=== PATIENT | male | born 1945 | race Caucasian/White ===

== ENCOUNTER 2017-03-24 05:12 | Inpatient (IN) | payer MEDICARE ==
[2017-03-24 06:20] LABS: #Eosinphils 0.1 thou/uL (0.0-0.7); #Lymphocytes 1.8 thou/uL (1.20-3.40); %Basophils 0.3 % (0.0-1.0); %Eosinophils 0.8 % (0.0-10.0); %Lymphocytes 16.7 % (21.0-51.0); %Monocytes 8.8 % (0.0-10.0); %Neutrophils 73.3 % (42.0-75.0); Mean Corpuscular HGB CONC 30.8 g/dL (32.0-36.0); Mean Corpuscular Hemoglobin 26.8 pg (27.0-31.0); Mean Platelet Volume 7.9 fL (7.4-10.4); Platelet Count 130 thou/uL (130-400); RBC Distribution Width 16.8 % (11.5-14.5); Red Blood Cell (RBC) Count 5.21 mill/uL (4.70-6.10); White Blood Cell (WBC) Count 10.9 thou/uL (4.8-10.8)
[2017-03-24 06:44] LABS: ALT (SGPT) 35 U/L (8-55); AST (SGOT) 37 U/L (5-34); Albumin 4.2 g/dL (3.4-4.8); Alkaline Phosphatase 62 U/L (40-150); Anion Gap 11 mmol/L (10-20); BUN (Urea Nitrogen) 23 mg/dL (8.4-25.7); Bilirubin, Total 1.5 mg/dL (0.2-1.2); CK (CPK) 299 U/L (30-200); Calc. Creatinine Clearance 0 mL/min (70-130); Calcium 10.3 mg/dL (7.8-10.44); Carbon Dioxide 29 mmol/L (23-31); Chloride 101 mmol/L (98-107); Estimated GFR-MDRD 81; Globulin 3.4 g/dL (2.4-3.5); Glucose 203 mg/dL (83-110); Potassium 4.4 mmol/L (3.5-5.1); Protein, Total 7.6 g/dL (5.8-8.1); Sodium 137 mmol/L (136-145)
[2017-03-24 06:52] LABS: CKMB 7.8 ng/mL (0-6.6); Troponin I 3.929 ng/mL (< 0.028)
[2017-03-24] MEDS ORDERED: Lorazepam 2 MG/ML VIAL ONE (07:19)
[2017-03-24] MEDS ORDERED: Nitroglycerin 2% Ointment 1 INCH/1 GM Packet ONE (08:23)
[2017-03-24] MEDS ORDERED: Enoxaparin Sodium 100 MG/ML SYRINGE ONE (08:23)
--- NOTE | 2017-03-24 08:30 | RAD ---
TWO VIEWS CHEST: Comparison: None. History: Shortness of breath since 11:00 p.m., dyspnea. FINDINGS: Two views of the chest shows a normal sized cardiomediastinal silhouette. The patient is status post CABG. Increased interstitial markings are present. There is no evidence of consolidation, mass, pleur al effusion. Degenerative changes are seen in the spine. IMPRESSION: No evidence of acute cardiopulmonary disease. POS: C
--- NOTE | 2017-03-24 08:40 | CT ---
CT ANGIO OF CHEST PERFORMED WITH INTRAVENOUS CONTRAST ENHANCEMENT AND 3D RECONSTRUCTIONS: History: Shortness of breath. FINDINGS: Lungs show some mild ground glass opacity with moderate bilateral pleural effusions, right larger jesus n left. This suggests an element of edema. Thoracic aorta shows aneurysmal dilatation of the ascending aorta which measures approximately 5.6 cm . The descending thoracic aorta is within normal limits. There is good pulmonary artery opacification. Artifact degrades detailed evaluation of the subsegment al branches in the lower lobes for evaluation for pulmonary embolus. I see no definitive signs of pul monary embolus. Visualized liver parenchyma shows no focal abnormalities. IMPRESSION: 1. Findings that suggest an element of edema, bilateral effusions, and some mild ground glass opacity to both lung griffith. 2. No CT evidence for pulmonary embolus. 3. Aneurysmal dilatation of the ascending aorta which measures approximately 5.6 cm in AP dimension. POS: [facility]
[2017-03-24] MEDS ORDERED: Furosemide 40 MG/4 ML VIAL ONE (09:41)
[2017-03-24] MEDS ORDERED: Clopidogrel Bisulfate 75 MG TAB ONE (10:14)
[2017-03-24] MEDS ORDERED: Dextrose 50% Abboject 50 ML SYRINGE SLOW IVP PRN (10:36)
[2017-03-24] MEDS ORDERED: Zolpidem Tartrate 5 MG TAB PO PRN (10:36)
[2017-03-24] MEDS ORDERED: hydrALAZINE 20 MG/ML VIAL SLOW IVP PRN (10:36)
[2017-03-24] MEDS ORDERED: Chloraseptic Spray 180 ml Bottle PO PRN (10:36)
[2017-03-24] MEDS ORDERED: Acetaminophen 325 MG TAB PO PRN (10:36)
[2017-03-24] MEDS ORDERED: HYDROcodone/Acetaminophen 5/325 mg Tablet PO PRN (10:36)
[2017-03-24] MEDS ORDERED: Nitroglycerin 0.4 MG TAB (25 Tab Bottle) SL PRN (10:36)
[2017-03-24] MEDS ORDERED: Sodium Chloride 0.9% 1,000 ML IV SCH (10:36)
[2017-03-24] MEDS ORDERED: Famotidine/PF 20 mg/2ml Vial SLOW IVP PRN (10:36)
[2017-03-24] MEDS ORDERED: Dextrose 5% in Water 1,000 ML IV PRN (10:36)
[2017-03-24] MEDS ORDERED: HumaLOG 300 UNITS/3 ML VIAL SC PRN (10:36)
[2017-03-24] MEDS ORDERED: Ondansetron HCl/PF 4 MG/2 ML Vial IVP PRN (10:36)
[2017-03-24] MEDS ORDERED: Communication Order-Pharmacy FS SCH (11:00)
[2017-03-24 11:12] LABS: Troponin I 5.477 ng/mL (< 0.028)
--- NOTE | 2017-03-24 11:37 | CON ---
DATE OF CONSULTATION: 03/24/2017 CARDIOLOGY CONSULTATION REASON FOR CONSULTATION: Non-STEMI. HISTORY OF PRESENT ILLNESS: Mr. Diaz is a very pleasant 71-year-old white gentleman who comes to [facility] for increased shortness of breath. He states for last 2 days he has been unable to lay fl at on his back. He states he has not been able to sleep at all because he has been coughing every ti me he lays flat. He has tried to prop himself up with about 4 or 5 pillows with little improvement, so he decided to come in to the hospital for further evaluation. Here, he was found to have an eleva christiano BNP and was given some IV Lasix, feels much better. Because of D-dimer was elevated, a CT of the chest with contrast was done. He also had troponins drawn that were elevated, so Cardiology has bee n consulted for further care. He has a left bundle branch block on his EKG, so this is at his baseli ne. He has significant history of coronary artery disease with previous bypass x5 in 2001. He had a BARRERA to the LAD. He had a nondominant right coronary artery that was not bypassed because it was sm all. He has a vein grafts to 4 limbs, two vein grafts are coming off of the aorta and there is Y-gra ft to OM1, 2, 3 and 4. One of them is a free radial from the vein graft. This Y graft was opened an d the distal portion of the second Y graft was closed on recent heart catheterization in 2008. He te lls me that he did not have any chest pain, tightness or pressure in the last few days such as shortn ess of breath. When I told him he had a heart attack or the blood work was suggestive of a heart att ack, he told me this might have happened 2 days ago as he feels that this is when everything started to get worse. He had some heartburn at that time. Currently, he is pain free, no heartburn. His br eathing is much better after his IV Lasix and some diuresis. PAST MEDICAL HISTORY: 1. PVD. 2. Type 2 diabetes. 3. Hypertension. 4. Hyperlipidemia. 5. Coronary artery disease. PAST SURGICAL HISTORY: 1. Coronary bypass grafting x5 in 2001. 2. Cholecystectomy. 3. Right salivary gland tumor removal. 4. Coronary stent in 2013. 5. Recent peripheral angiography with plans to do aortobifemoral bypass in the future if his symptom s progress. FAMILY HISTORY: Father at 85 of heart disease. Mother at 81 of Alzheimer dementia. SOCIAL HISTORY: He is a former smoker, quit smoking after his heart attack in 2001. 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 ALLERGIES: No known drug allergies. OUTPATIENT MEDICATION: This is from a note from September of this year and he will bring an updated list, they include: 1. Carvedilol 25 mg b.i.d. 2. Crestor 10 mg at bedtime. 3. Plavix 75 mg a day. 4. Lisinopril 10 mg a day. 5. Aspirin 325 a day. 6. Gabapentin 600 mg 3 times a day. 7. Pramipexole. 8. Isosorbide mononitrate 30 mg every day. 9. Glimepiride. 10. Nitrolingual spray. REVIEW OF SYSTEMS: A 12-point review of systems was done and is all negative unless stated in the hi story of present illness. PHYSICAL EXAMINATION: VITAL SIGNS: Temperature 97.2, pulse 70, respiratory rate 16, satting 98% on room air, blood pressur e 120/62. GENERAL: Awake, alert, oriented x3, in no distress. HEENT: Normocephalic, atraumatic. NECK: Supple. LUNGS: Have mild crackles at the bilateral bases. CARDIOVASCULAR: S1, S2, no S3 or S4. There is a grade 3/6 systolic ejection murmur at the right upp er sternal border which is mid to late peaking and it radiated to the rest of the precordium. ABDOMEN: Soft, positive bowel sounds. EXTREMITIES: No edema. SKIN: Warm and dry. LABORATORY WORK: Reviewed. White count of 10.9, hemoglobin of 14, hematocrit 45, and white count 13 0. Coags with D-dimer of 1.86. Chemistry profile unremarkable except for glucose of 203, total bili cullen 1.5, AST of 37. CK of 299. CK-MB of 7.8, troponin I of 3.9. BNP of 1057, albumin of 4.2. Chest x-ray was unremarkable. CT of the chest shows findings suggestive of pulmonary edema with bilateral effusions. There is no e vidence of pulmonary embolus, but there is an aneurysmal dilatation of the ascending aorta that measu res 5.6 cm in AP dimension. EKG was reviewed, the left bundle branch block which is old. ASSESSMENT AND PLAN: 1. Non-ST elevation myocardial infarction. 2. Acute on chronic systolic heart failure. 3. Ischemic cardiomyopathy. 4. Coronary artery disease, severe. 5. Ascending aortic aneurysm. 6. Aortic stenosis, moderate per report. 7. Type 2 diabetes. 8. Peripheral vascular disease. PLAN: 1. We will get an echocardiogram to assess his aortic valve. 2. To continue IV Lasix to diurese. 3. I spoke with him about further risk stratification with a heart catheterization and he agrees to proceed. I spoke with him at length about the risks and benefits of the procedure and he has had the m before and he agrees to proceed. I told him that because of his enlarged aorta, his risk of dissec tion and perforation is higher, but this is needed before any surgical intervention is planned in the aorta. We will plan on doing an angiography. I will try to avoid stenting if at all possible as mo st likely solution would be doing open heart surgery to replace his aortic valve and his aortic aneur ysm and doing bypass at the same time. If this were to be the case, he will have to be transferred [facility] [place] for this as we are not able to do this procedure in our facility. 4. Continue full anticoagulation. We will reevaluate tomorrow morning and if he is better from his breathing standpoint, we will plan on taking him to the catheterization lab at that time. Currently, he is unable to lie flat for longer than 5 or 10 minutes. Thank you for letting us to participate in the care of your patient. We will follow.
[2017-03-24] MEDS ORDERED: ISOVUE-370 76%-LOCM 1 ML ONE (11:38)
[2017-03-24 11:51] LABS: Cardiac Risk 3.3 (Less than 4.5)
[2017-03-24] MEDS ORDERED: Metoprolol Tartrate 25 MG TAB ONE (13:28)
[2017-03-24 14:24] LABS: Troponin I 5.633 ng/mL (< 0.028)
--- NOTE | 2017-03-24 15:12 | HP ---
CHIEF COMPLAINT: Shortness of breath. HISTORY OF PRESENT ILLNESS: This is a 71-year-old pleasant gentleman with a history of coronary leelee ry disease status post CABG, comes into the hospital with shortness of breath. The patient says that he was out on the [place] in the night hunting. He had hunted a deer and once he had process ed the animal, he became extremely short of breath. It did not resolve on the first and hence he cam e to the hospital for further evaluation and treatment. Initial evaluation showed BNP to be 1057 and troponin of 3.9. Dr. Almonte was consulted. He recommended admission of the patient for further romeo luation of the coronary arteries and elevated troponin and management of CHF. The patient denies any fever, chills, nausea, vomiting, diarrhea or dysuria. No chest pain at current moment. PAST MEDICAL HISTORY: Significant for coronary artery disease status post CABG, history of CHF, diab etes, hypertension, and hyperlipidemia. PAST SURGICAL HISTORY: Significant for cardiac stenting x1, CABG and cholecystectomy. PSYCHIATRIC HISTORY: No previous psychiatric history. SOCIAL HISTORY: Does not drink, smoke or do recreational drugs. FAMILY HISTORY: Negative for diabetes and hypertension. ALLERGIES: No known drug allergies. MEDICATIONS: Please see MAR. REVIEW OF SYSTEMS: Significant for shortness of breath, otherwise no fever, no chills, no headache, no appetite, no hearing loss, no latencies. No cough, no chest pain, no diarrhea, no dysuria, no alondra yuria, no memory or mood changes, and no neck pain. PHYSICAL EXAMINATION: VITAL SIGNS: Blood pressure 112/63, pulse is 73, respirations 23, temperature afebrile. GENERAL: Patient is lying in bed, no apparent distress. HEENT: Atraumatic and normocephalic. Pupils equally round, react to light. Extraocular movements i ntact. Mucous membranes moist. NECK: No JVD. CHEST: Bibasilar rales heard. HEART: S1, S2 normal. No murmurs or gallops. ABDOMEN: Soft, obese. EXTREMITIES: No cyanosis, clubbing, edema. Distal pulses present. NEUROLOGICAL: Alert, awake, oriented. No cranial deficits. No sensorimotor deficits. IMAGING DATA AND LABORATORY DATA: CTA shows edema, no embolism. Chest x-ray normal. Also, CTA show ed dilatation of the ascending aorta 5.6 cm. BNP is 1057. Chest x-ray negative. CK-MB is 7.8, CK 2 99, potassium is 4.4, creatinine is 0.9, bilirubin 1.5. WBC 7.9, hemoglobin is 14. ASSESSMENT AND PLAN: 1. Mmx-CP-thsbuvt elevation myocardial infarction. We will trend troponins. Echocardiogram, ACS pr otocol. Dr. Suzy pressley will follow his recommendations. 2. Congestive heart failure exacerbation. We will do echocardiogram to classify the congestive hear t failure. We will treat with IV Lasix for now. For ACS protocol includes, we will treat with subcu Lovenox therapeutic dose. 3. Diabetes mellitus, put him on insulin sliding scale. 4. Hyperlipidemia. We will check fasting lipid profile. 5. Hypertension appears to be stable. 6. Obesity. The patient has been counseled. Sequential compression devices for deep venous thrombo sis prophylaxis. Patient also is on Lovenox. The patient appears to be a FULL CODE as of now. We w ill work with Cardiology and further caring for the patient.
[2017-03-24 18:34] LABS: Critical Call Chem Troponin I RESULT DECREASING; Troponin I 5.606 ng/mL (< 0.028)
[2017-03-24] MEDS ORDERED: Enoxaparin Sodium 100 MG/ML SYRINGE SC SCH (21:00)
[2017-03-24] MEDS ORDERED: Atorvastatin Calcium 40 MG TAB PO SCH (21:00)
[2017-03-24] MEDS: Docusate 100 MG CAP PO SCH (21:01)
[2017-03-24] MEDS: Metoprolol Tartrate 25 MG TAB PO SCH (21:03)
[2017-03-24] MEDS: Benzonatate 100 MG CAP PO PRN (21:03)
[2017-03-24] MEDS: Furosemide 40 MG/4 ML VIAL SLOW IVP SCH (21:04)
[2017-03-24 23:27] LABS: Critical Call Chem Troponin I RESULT DECREASING; Troponin I 4.839 ng/mL (< 0.028)
[2017-03-24 23:43] LABS: Bilirubin Negative (Negative); Blood, Urine Negative (Negative); Clarity CLEAR (Clear); Glucose, Urine (Dipstick) 250 mg/dL (Negative); Leukocyte Small (Negative); Nitrite Negative (Negative); Protein, Urine (Dipstick) Negative (Neg-Trace); Specific Gravity, Urine 1.032 (1.002-1.036); pH, Urine 5.5 (5.0-9.0)
[2017-03-24 23:45] LABS: Bacteria/HPF None Seen HPF (None Seen); Hyaline Casts/LPF 0-3 HYALINE CAST LPF (0-3 Hyaline); Squamous Epithelial None Seen HPF (0-3)
[2017-03-25] MEDS: Benzonatate 100 MG CAP PO PRN ×2 (03:12→07:59)
[2017-03-25] MEDS: Metoprolol Tartrate 25 MG TAB PO SCH (04:57)
[2017-03-25] MEDS: Furosemide 40 MG/4 ML VIAL SLOW IVP SCH ×2 (04:57→13:59)
[2017-03-25 05:36] LABS: ALT (SGPT) 25 U/L (8-55); AST (SGOT) 23 U/L (5-34); Albumin 3.8 g/dL (3.4-4.8); Alkaline Phosphatase 52 U/L (40-150); Anion Gap 13 mmol/L (10-20); BUN (Urea Nitrogen) 19 mg/dL (8.4-25.7); Bilirubin, Total 1.6 mg/dL (0.2-1.2); Calc. Creatinine Clearance 109 mL/min (70-130); Calcium 9.5 mg/dL (7.8-10.44); Carbon Dioxide 28 mmol/L (23-31); Chloride 99 mmol/L (98-107); Estimated GFR-MDRD 85; Globulin 3.2 g/dL (2.4-3.5); Glucose 164 mg/dL (83-110); Potassium 3.9 mmol/L (3.5-5.1); Sodium 136 mmol/L (136-145)
[2017-03-25] MEDS: Docusate 100 MG CAP PO SCH (07:35)
[2017-03-25 08:19] VITALS: BMI 28.6
[2017-03-25] MEDS ORDERED: Aspirin 325 MG TAB PO SCH (09:00)
--- NOTE | 2017-03-25 12:24 | PDOC.CTH ---
Cardiology Progress Note - Subjective He has diuresed well and his breathing is much better. - Objective Vital Signs Temp Pulse Resp BP BP Pulse Ox 03/25/17 07:57 98.0 F 67 18 138/66 95 03/25/17 04:00 98.1 F 76 20 122/79 95 Admit Weight 224 lb Weight 223 lb 03/24/17 03/25/17 03/26/17 06:59 06:59 06:59 Intake Total 240 Balance 240 - Physical Examination General/Neuro: alert & oriented x3, NAD Neck: no JVD present Lungs: CTA, unlabored respirations Heart: RRR Abdomen: NT/ND Extremities: + edema B (trace.) - Telemetry Telemetry Rhythm: NSR - Labs Result Diagrams: 03/24/17 05:33 03/25/17 04:47 Troponin/CKMB CK-MB (CK-2) 7.8 ng/mL (0-6.6) H* 03/24/17 05:33 Troponin I 4.839 ng/mL (< 0.028) H* 03/24/17 22:45 - Assessment/Plan 1. Acute on chronic systolic heart failure 2. Severe dilated CM. EF at 20-25% 3. Severe aortic stenosis. 4. Ascending aortic artery aneurysm, measured at 5.[address] 5. NSTEMI PLAN: - I spoke with his primary Ferry Operator Raymond Portillo and he tells me his coronary disease is severe and likely to be amenable to any intervention. - Most likely cause of his CHF exacerbation is worsening of his aortic valve, per Dr. Andrade his valve was moderate to severe with normal EF on echo on 2015. - With reduced EF and also needing an aortic root he would require open heart surgery for a root repair, valve replacement and possibly bypass surgery, he would be high risk. I do not think he is a candidate for a TAVR with an enlarged root. medical therapy may be his best option and is what will do for now. - He would like to be transferred to the [facility] as there is were his primary Ferry Operator is. if his transfer does not go through he will be treated medically with 48hrs of anticoagulation and will be discharged home probably tomorrow on a lifevest. Order will be placed today.
--- NOTE | 2017-03-25 12:45 | DIS ---
DATE OF ADMISSION: 03/24/2017 DATE OF DISCHARGE: 03/25/2017 DISPOSITION: Different inpatient hospital. DIAGNOSES ON DISCHARGE: Non-ST elevation myocardial infarction, acute on chronic systolic congestive heart failure, ischemic cardiomyopathy, coronary artery disease, ascending aortic aneurysm, diabetes , peripheral vascular disease, hyperlipidemia, diabetes, and hypertension. CONSULTANTS: Dr. Almonte. DISCHARGE MEDICATIONS: The same as admit medications. BRIEF HOSPITAL COURSE: A 71-year-old pleasant gentleman came into the hospital with shortness of bianca ath after an episode of hunting, please refer to the admitting physician's H&P for further details. The patient was admitted, given Lovenox. Dr. Almonte spoke to the patient in detail about his conditi on, they decided to have further care with their portable pinch riveter, who is at the [facility]. Arrangements for t he transfer are being made right now, patient is medically stable to be transferred. PHYSICAL EXAMINATION: VITAL SIGNS: At the time of discharge, his vital signs were stable. Blood pressure was 100/60, puls e was 70, respirations 20, and temperature afebrile. GENERAL: The patient was lying in bed, no apparent distress. HEENT: Atraumatic and normocephalic. Pupils equally round, reactive to light. Extraocular movement s intact. Mucous membranes moist. NECK: Supple. No JVD. CHEST: Breath sounds heard. There are no rales or rhonchi. HEART: S1 and S2, no murmurs or gallops. ABDOMEN: Soft. EXTREMITIES: No cyanosis, clubbing or edema. Distal pulses present. NEUROLOGIC: Alert, awake, oriented. No cranial deficits. No sensorimotor deficits. The patient right now is medically stable to be transferred. In our hospital, he had a CTA, which sh owed no embolism. Troponins were elevated this hospital stay. He is right now medically stable to b e transferred, to be accepted by his portable pinch riveter. He is asked to come back to the emergency room in case symptoms recur. Total time for this discharge took 35 minutes.
[2017-03-25 13:31] VITALS: BP 125/75; TEMP 97.7
[2017-03-25] MEDS ORDERED: Carvedilol 6.25 MG TAB PO SCH (17:00)
[2017-03-25] MEDS ORDERED: Enoxaparin Sodium 100 MG/ML SYRINGE SC SCH (21:00)
[2017-03-26] MEDS ORDERED: Lisinopril 10 MG TAB PO SCH (09:00)
[2017-03-26] MEDS ORDERED: Clopidogrel Bisulfate 75 MG TAB PO SCH (09:00)
== END 2017-03-25 16:41 | disposition short-term general hospital (02) | DRG 280 ==
LOC: ERS 05:12 → ERHOLD 09:56 → 2NO 19:00
PROVIDERS: ADMIT Internal Medicine; ATTEND Internal Medicine
DX: I21.4 Non-ST elevation (NSTEMI) myocardial infarction (principal); I50.23 Acute on chronic systolic (congestive) heart failure; E11.51 Type 2 diabetes mellitus with diabetic peripheral angiopathy without gangrene; I71.2 Thoracic aortic aneurysm, without rupture; I11.0 Hypertensive heart disease with heart failure; I25.5 Ischemic cardiomyopathy; I25.10 Atherosclerotic heart disease of native coronary artery without angina pectoris; E78.5 Hyperlipidemia, unspecified; Z95.1 Presence of aortocoronary bypass graft; E66.9 Obesity, unspecified; Z87.891 Personal history of nicotine dependence; I35.0 Nonrheumatic aortic (valve) stenosis
CPT/HCPCS: 36415; 36416; 71046; 71275; 80053; 80061; 81001; 82550; 82553; 83880; 84484; 85025; 85379; 93005; 93306; 93798; 94640; 96372; 96374; 96375; A4216; J1650; J1940; J2060

== ENCOUNTER 2019-12-26 12:05 | Inpatient (IN) | payer MEDICARE, OTHER ==
[~2019-12-26 12:05] MED LIST: Iopamidol-370 76% 500 ML 1 ML ONE
--- NOTE | 2019-12-26 14:53 | ULT ---
ULTRASOUND DOPPLER DUPLEX ARTERIA BILATERAL: DATE: 12/26/2019 HISTORY: 74-year-old male with bilateral lower extremity decreased pulses TECHNIQUE: Grayscale, color-flow, and spectral analysis, of major arteries of bilateral lower extremities. FINDINGS: Atherosclerosis: Calcified plaque visualized throughout all arteries. Highest peak systolic velocity in cm/s, followed by pulsed Doppler waveform: RIGHT: Common femoral: 95; Biphasic Profunda femoral: 60; Biphasic Superficial femoral, proximal: 30; Biphasic Superficial femoral, mid: 15; Monophasic Superficial femoral, distal: Flow not visualized Popliteal: 15; Monophasic Posterior tibial: 20; Monophasic Anterior tibial: 5; Monophasic Dorsalis pedis: 5; Monophasic LEFT: Common femoral: 85; Biphasic Profunda femoral: 10; Monophasic Superficial femoral, proximal: 10; Monophasic Superficial femoral, mid: 10; Monophasic Superficial femoral, distal: 10; Monophasic Popliteal: 10; Monophasic Posterior tibial: Flow not visualized Anterior tibial: 20; Monophasic Dorsalis pedis: Flow not visualized IMPRESSION: 1 extensive atherosclerotic disease throughout all major arteries of bilateral lower extremities. 2. High-grade arterial occlusive disease throughout bilateral lower extremities.
[2019-12-26] MEDS ORDERED: HumaLOG 300 UNITS/3 ML VIAL SC PRN (16:16)
[2019-12-26] MEDS ORDERED: Ondansetron PF 4 MG/2 ML Vial IVP PRN (16:16)
[2019-12-26] MEDS ORDERED: Acetaminophen 325 MG TAB PO PRN (16:16)
[2019-12-26] MEDS ORDERED: Dextrose 50% Abboject 50 ML SYRINGE SLOW IVP PRN (16:16)
[2019-12-26] MEDS ORDERED: Bisacodyl 10 MG SUPP PR PRN (16:16)
[2019-12-26] MEDS ORDERED: HYDROcodone/Acetaminophen 5/325 mg Tablet PO PRN (16:16)
[2019-12-26] MEDS ORDERED: Senokot S 8.6-50 MG TAB PO PRN (16:16)
[2019-12-26] MEDS ORDERED: Calcium Carbonate 500 MG ChewTAB PO PRN (16:16)
[2019-12-26] MEDS ORDERED: Dextrose 5% in Water 1,000 ML IV PRN (16:16)
[2019-12-26] MEDS ORDERED: Guaifenesin DM 100-10/5 ML UDCUP PO PRN (16:16)
--- NOTE | 2019-12-26 17:00 | HP ---
REASON FOR ADMISSION: Left foot and leg cellulitis, nonhealing ulcer. HISTORY OF PRESENTING ILLNESS: The patient gives history of having a spider bite and he specifically mentions that it was brown recluse on November 03. It apparently bit him three times on the same day. This happened on the medial aspect of his left leg. The area got red and black and he had initial bout of cellulitis, which is more in the leg area. He took two weeks of antibiotics then and went back to see his primary care physician. After about four weeks or so, the redness moved to the ankle area and he developed a blister over the plantar aspect of left great toe and the heel area. He went back to his primary care physician again and got ciprofloxacin and doxycycline. The patient says this has been helping him, but his primary care physician was getting worried as he has required nearly three rounds of antibiotics and his wounds are not healing and asked him to get hospitalized for further workup. He had arterial Doppler done, which showed high velocities in both lower extremities. Currently, has no complaints of any pain. He is ambulating on his legs. No complaints of fever as of now. The patient does not have any COVID-19 symptoms. PAST MEDICAL AND SURGICAL HISTORY: History of CABG for five-vessel disease done by Dr. Albrecht. He has had prior stents done. 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 Echo done in March of 2017 shows ejection fraction of 20% to 25%. CURRENT MEDICATIONS: 1. The patient is on pramipexole 0.25 mg p.o. twice daily. 2. Gabapentin 600 mg daily and 1200 mg p.o. nightly. 3. Finasteride 5 mg p.o. daily. 4. Entresto 24/26 mg one tablet twice daily. 5. Glimepiride 2 mg twice daily. 6. Lasix 20 mg daily. 7. Plavix 75 mg daily. 8. Rosuvastatin 10 mg p.o. every evening. 9. Vitamin C 1000 mg p.o. daily. 10. Zinc sulfate 220 mg p.o. daily. ALLERGIES: NO KNOWN DRUG ALLERGIES. PERSONAL HISTORY: Drinks one beer around 4 p.m. Otherwise, does not abuse heavy alcohol or drugs. Does not smoke now. He stays alone. His of COVID- 19 on October 27. He has always tested negative for it. FAMILY HISTORY: Mother of dementia and its complications at the age of 75. Father of natural causes at the age of 86. CODE STATUS: Full. Power of managing attorney is his son, Mr. Moshe Molina. REVIEW OF SYSTEMS: CONSTITUTIONAL: Negative for weight loss or gain, ability to conduct usual activities. SKIN: Negative for rash, itching. EYES: Negative for double vision, pain. ENT/MOUTH: Negative for nose bleeding, neck stiffness, pain, tenderness. CARDIOVASCULAR: Negative for palpitations, dyspnea on exertion, orthopnea. RESPIRATORY: Negative for shortness of breath, wheezing, cough, hemoptysis, fever or night sweats. GASTROINTESTINAL: Negative for poor appetite, abdominal pain, heartburn, nausea, vomiting, constipation, or diarrhea. GENITOURINARY: Negative for urgency, frequency, dysuria, nocturia. MUSCULOSKELETAL: Negative for pain, swelling. NEUROLOGIC/PSYCHIATRIC: Negative for anxiety, depression. ALLERGY/IMMUNOLOGIC: Negative for skin rash, bleeding tendency. PHYSICAL EXAMINATION: GENERAL: The patient is a 74-year-old male, who is currently not in any acute distress. VITAL SIGNS: Blood pressure 146/66, pulse rate 56 per minute, respiratory rate 16 per minute, temperature 98.5 degrees Fahrenheit, and saturating 96% on room air. NECK: Supple. No elevated JVD. HEENT: Eyes, extraocular muscles are intact. Pupils are reacting to light. Oral cavity, mucous membranes are moist. No exudates or congestion. CARDIOVASCULAR SYSTEM: S1 and S2 heard. Regular rhythm. RESPIRATORY SYSTEM: Air entry 1+ bilateral. No rales or rhonchi. ABDOMEN: Soft. Bowel sounds heard. No tenderness, rigidity, or guarding. EXTREMITIES: Left foot, ankle, and lower 1/3 of his leg is erythematous. He has old healing ulcer over the plantar aspect of distal phalanx of left great toe. He also has a healing ulcer over the left heel. Peripheral pulses are 1+ bilateral. CENTRAL NERVOUS SYSTEM: No gross focal motor deficits noted. The patient is alert, awake, and oriented well. PSYCHIATRIC SYSTEM: The patient's mood is euthymic. No hallucinations or delusions. LABORATORY DATA: White count of 7, H and H 15 and 50, platelet count 131, MCV is 98 with 73% neutrophils. Electrolytes stable. BUN 22, creatinine 0.8, serum glucose 153. Ultrasound arterial Doppler on both lower extremities done showed extensive atherosclerotic disease throughout all major arteries of bilateral lower extremities. There is a high-grade arterial occlusive disease throughout bilateral lower extremities. Left tibia and fibula, two view x-ray done showed no fracture or dislocation. Scattered soft tissue swelling over the pretibial area. CLINICAL IMPRESSION AND PLAN: The patient will be admitted to medical floor for left lower extremity cellulitis with nonhealing ulcers and likely peripheral vascular disease. He has had a prior abdominal aortogram with runoff done by Dr. Albrecht in 2018. We will consult Dr. Albrecht for Vascular Surgery and will place him on vancomycin and ceftriaxone for now. We will continue Plavix, glimepiride, Proscar, Crestor, Mirapex, Entresto at home doses. COVID-19 PCR for completion be obtained. We will continue to closely monitor him on medical floor. Job ID: [id number] [facility]
[2019-12-26] MEDS ORDERED: cefTRIAXone\\ROCEPHIN 2 GM in Sodium Chloride 0.9% 100 ML IVPB SCH (18:00)
[2019-12-26 18:14] VITALS: BMI 26.6
--- NOTE | 2019-12-26 20:24 | CT ---
HISTORY: Peripheral vascular disease COMPARISON: 10/16/2016 TECHNIQUE: Multiple contiguous axial images were obtained a CTA of the abdomen, pelvis, and bilateral lower extremities with contrast. Sagittal and coronal 3-D MIP reformats were performed. FINDINGS: Liver: Diffuse hypoattenuation suggesting hepatic steatosis. Gallbladder: Surgically absent. Kidneys: Symmetric enhancement. No evidence of obstructive uropathy. Adrenal glands: Unremarkable. Spleen: Unremarkable. Pancreas: Unremarkable. Bowel: Limited evaluation by the lack of oral contrast. No evidence of a bowel obstruction. Normal il eocecal junction. Normal caliber appendix. Diverticulosis. Colitis.. Reproductive organs :Enlarged prostate gland. There are calcifications present. Retroperitoneum: No lymphadenopathy Bones: Multilevel vacuum disc phenomenon. Multilevel degenerative changes. Inferior thorax: Chronic changes. Heart: Normal heart size. There is a stent at the proximal ascending thoracic aorta. Abdominal aorta. Normal caliber without evidence of dissection or aneurysmal dilatation. Celiac trunk: Patent SMA: Patent CAHRLENE: Patent Renal arteries: Left single renal arteries and 2 right renal arteries without significant atheroscler otic disease Bilateral common iliac arteries: Unremarkable. Internal iliac arteries: Atherosclerosis involving proximal bilateral internal iliac arteries.. External iliac arteries: Unremarkable. Common femoral arteries: Unremarkable. Profunda femoral arteries: Unremarkable. Superficial femoral arteries: Atherosclerosis with occlusion of the proximal right superficial femora l artery, mid and distal superficial femoral artery. Atherosclerosis with occlusion of the mid and distal left superficial femoral artery.. Popliteal arteries: Atherosclerosis and occlusion of bilateral popliteal arteries.. Right lower extremity: Suboptimal evaluation due to poor timing of contrast bolus. There is evidence of atherosclerosis. Left lower extremity: Suboptimal evaluation due to poor timing of contrast bolus. There is extensive atherosclerotic IMPRESSION: 1. Suboptimal evaluation of the left and right lower extremity arterial system due to poor timing of contrast bolus. 2. There does appear to be significant atherosclerosis and occlusion involving bilateral superficial femoral arteries and popliteal arteries. Evaluation may in part be limited due to poor timing of contrast bolus. Consider conventional angiography. 3. Additional findings as above Transcribed Date/Time: 12/26/2019 8:46 PM
[2019-12-26] MEDS: Vancomycin 1.5 GRAM/300 ML BAG 1.5 GM in Premix Bag 1 BAG IVPB SCH (20:55)
[2019-12-26] MEDS: Glimepiride 2 MG TAB PO SCH (21:00)
[2019-12-26] MEDS: Rosuvastatin 10 MG TAB PO SCH (21:01)
[2019-12-26] MEDS: Pramipexole Di-HCl 0.25 MG TAB PO SCH (21:01)
[2019-12-26] MEDS: Famotidine 20 MG TAB PO SCH (21:01)
[2019-12-26] MEDS: Gabapentin 400 MG CAP PO SCH (21:01)
--- NOTE | 2019-12-27 01:17 | CON ---
DATE OF CONSULTATION: HISTORY OF PRESENT ILLNESS: This is a 74-year-old gentleman who relates a 1-week history of an ulcer on the left great toe and heel. On closer questioning, these are probably been there longer. He suffered a brown recluse bite on his left calf several weeks ago and had some difficulty with this. In any event, he presented to the emergency room with the above complaints and was admitted to the hospital. He states he does have claudication, but says it is not very bad and states he can walk a block with some left calf discomfort. After his antibiotics for his brown recluse bite, the patient has not completely healed up his wounds and was therefore admitted. He has previously been evaluated for peripheral vascular disease, undergoing angiography about three years ago. At that time, he had bilateral superficial femoral artery occlusions as well as a significant stenosis in his distal left common iliac artery. Intervention was not taken at that time due to the patient stating his claudication was not that bothersome, and in fact at that time, his right calf was the more bothersome leg and it is the left calf. He does have a history of a coronary bypass grafting x5 in 2001 with two graft remaining patent. He has had stenting on 2 occasions to a very small diagonal branch and I do not know what the other branch is. He has also had a TAVR done in 2018 for aortic valve stenosis. Otherwise, past medical history includes carotid artery disease, diabetes mellitus, hypertension, dyslipidemia, peripheral vascular disease, coronary artery disease. PAST SURGICAL HISTORY: The above-noted TAVR in 2018. He has also had a left carotid endarterectomy in 2007, coronary bypass grafting in 2001, OM graft stent in 2008, diagonal stent in 2017, cholecystectomy, right salivary gland tumor removal. SOCIAL HISTORY: The patient is recently this summer with his passing away from [employer]. His son helps take care of him and he still is in the [employer] ALLERGIES: HE HAS NO KNOWN ALLERGIES. CURRENT MEDICATIONS: 1. Pramipexole 0.25 b.i.d. 2. Gabapentin 600 daily, 1200 nightly. 3. Proscar 5 a day. 4. Entresto 24/26 b.i.d. 5. Glimepiride 2 mg b.i.d. 6. Lasix 20 a day. 7. Plavix 75 a day. 8. Crestor 10 every evening. PHYSICAL EXAMINATION: GENERAL: He is alert, cooperative gentleman, in no distress. He has a recorded height of 6 feet 3 inches, weight of 213, blood pressure 125/68, heart rate 70. NECK: No carotid bruits. LUNGS: Clear to auscultation. CARDIAC: Regular rate and rhythm with a 2/6 systolic murmur right upper and left lower sternal border. ABDOMEN: Soft and nontender. No organomegaly. EXTREMITIES: He has palpable femoral pulses bilaterally with a monophasic left dorsalis pedis and biphasic right posterior tibial. He has some rubor in his left lower extremity with dry eschar over the plantar surface of his left great toe and a crack in his left heel. He also has a slight area of black discoloration near his right great toenail. He has no peripheral edema. ASSESSMENT AND PLAN: At this time, the patient probably needs a left common femoral endarterectomy and a femoral popliteal bypass, but we will need to repeat his CT angiogram to update his vascular status since the last study was about three years ago. We will use a bioprosthetic graft due to the fact that his saphenous vein has been harvested from his left lower extremity. We will hold his Plavix for now and check his CT angiogram tomorrow. Job ID: [id number]
[2019-12-27 06:08] LABS: #Eosinphils 0.2 thou/uL (0.0-0.7); #Lymphocytes 1.6 thou/uL (1.20-3.40); #Monocytes 0.7 thou/uL (0.11-0.59); #Neutrophils 3.4 thou/uL (1.40-6.50); %Basophils 0.4 % (0.0-1.0); %Eosinophils 2.6 % (0.0-10.0); %Lymphocytes 27.5 % (21.0-51.0); %Monocytes 11.5 % (0.0-10.0); Mean Corpuscular HGB CONC 33.1 g/dL (32.0-36.0); Mean Corpuscular Hemoglobin 32.6 pg (27.0-31.0); Mean Corpuscular Volume 98.6 fL (78.0-98.0); Mean Platelet Volume 7.1 fL (7.4-10.4); Platelet Count 122 thou/uL (130-400); RBC Distribution Width 13.8 % (11.5-14.5); Red Blood Cell (RBC) Count 4.89 mill/uL (4.70-6.10); White Blood Cell (WBC) Count 5.8 thou/uL (4.8-10.8)
[2019-12-27 06:35] LABS: Anion Gap 11 mmol/L (10-20); BUN (Urea Nitrogen) 19 mg/dL (8.4-25.7); Calc. Creatinine Clearance 113 mL/min (70-130); Calcium 8.8 mg/dL (7.8-10.44); Carbon Dioxide 25 mmol/L (23-31); Chloride 104 mmol/L (98-107); Estimated GFR-MDRD Greater than 90; Glucose 80 mg/dL (83-110); Potassium 4.2 mmol/L (3.5-5.1); Sodium 136 mmol/L (136-145)
--- NOTE | 2019-12-27 07:56 | PRG ---
DATE OF SERVICE: 12/27/[address] angiogram was performed and reviewed. He does have some occlusion of the left superficial femoral artery as well as the right. His left profunda has a significant stenosis at its origin. Unfortunately, no contrast shows up in his distal vessels and whether this was due to timing of contrast or lack of blood flow in his distal vessels is not clear. I think I will go ahead and order an MRA to better characterize the flow in his lower extremities. If there is no distal bypass to be done, consideration could be given to a common and profunda femoral endarterectomy and if distal vessels are visible, consider the above procedure combined with a femoral popliteal bypass using [place]-Tristan. In any event, the patient is stable and will continue evaluation. Job ID: [id number]
[2019-12-27] MEDS: Vancomycin 1.5 GRAM/300 ML BAG 1.5 GM in Premix Bag 1 BAG IVPB SCH ×2 (08:18→20:42)
[2019-12-27] MEDS: Glimepiride 2 MG TAB PO SCH ×2 (08:18→18:19)
[2019-12-27] MEDS: Finasteride 5 MG TAB PO SCH (08:19)
[2019-12-27] MEDS: Famotidine 20 MG TAB PO SCH ×2 (08:19→20:43)
[2019-12-27] MEDS: Gabapentin 300 MG CAP PO SCH (08:19)
[2019-12-27] MEDS: Pramipexole Di-HCl 0.25 MG TAB PO SCH ×2 (08:20→20:44)
[2019-12-27] MEDS ORDERED: Enoxaparin Sodium 40 MG/0.4 ML SYRINGE SC SCH (09:00)
[2019-12-27] MEDS ORDERED: FLU VACC QS2020-21(65YR UP)/PF 240 MCG/0.7 ML SYRINGE IM ONE (09:00)
[2019-12-27] MEDS ORDERED: Clopidogrel Bisulfate 75 MG TAB PO SCH (09:00)
--- NOTE | 2019-12-27 09:41 | MRI ---
MRA OF THE LOWER EXTREMITIES WITH IV CONTRAST: INDICATION: Define patency of the lower extremity vessels after incomplete CTA. TECHNIQUE: There are whole body MRA images obtained of the abdomen and pelvis with bilateral lower extremity run off. 20 cc of MultiHance was utilized for the examination. FINDINGS: There are 2 separate right renal arteries. There is a single left renal artery. All renal arteries appear patent. There is moderate narrowing involving the origin of the proximal aspect of the SMA. Celiac appears patent. There is some moderate narrowing involving the origin of the CHARLENE. Both commo n iliac arteries are patent. There is patency of both external iliac arteries as some prominent athe rosclerotic irregularity of the common femoral arteries. There is complete occlusion of the superficial femoral arteries. There is some reconstitution of jimbo w seen within the mid to distal left SFA through collaterals but with development of another area of complete occlusion just proximal to the left adductor hiatus. There is reconstitution of flow within both lower extremities through the profunda femoral collateral vessels into the popliteal arteries w ith opacification of the trifurcation within both lower extremities. There is flow below the posteri or tibial artery through the level of the plantar arch and into the distal foot. The peroneal artery extends to the level of the ankle bilaterally. The anterior tibial artery extends to the level of t he ankle on the right lower extremity and on the left lower extremity. IMPRESSION: 1. Complete occlusion of the superficial femoral arteries bilaterally with reconstituted flow throug h collaterals via the deep profunda femoral artery at the level of the popliteal artery bilaterally. There is at least 3-vessel runoff to both lower extremities to the level of the ankle bilaterally. 2. Moderate narrowing involving the origin of the proximal aspect of the superior mesenteric artery. POS: [facility]
--- NOTE | 2019-12-27 09:53 | MRI ---
MRA OF THE ABDOMEN WITH IV CONTRAST: INDICATION: Atherosclerotic disease of the abdominal aorta with a history of ischemic ulcers to the left foot. COMPARISON: Prior CTA of the abdomen and pelvis with bilateral extremity runoff dated 12/26/2019. CONTRAST: 20 cc of MultiHance. FINDINGS: There is moderate narrowing involving the origin and proximal aspect of the SMA. There is patency of the celiac and duplicated right renal arteries. There is patency of the left renal artery with just minimal narrowing involving the proximal left renal artery. There is moderate narrowing involving t he origin of the CHARLENE. There is prominent atherosclerotic irregularity involving the iliac vasculatur e. IMPRESSION: 1. No aneurysmal dilatation of the aortic arch. 2. Moderate narrowing involving the origin of the proximal aspect of the superior mesenteric artery. 3. 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 4. Moderate narrowing involving the origin of the inferior mesenteric artery. POS: [facility]
[2019-12-27] MEDS: cefTRIAXone\\ROCEPHIN 2 GM in Sodium Chloride 0.9% 100 ML IVPB SCH (11:18)
[2019-12-27] MEDS: HumaLOG 300 UNITS/3 ML VIAL SC PRN ×2 (11:27→18:21)
--- NOTE | 2019-12-27 12:54 | PDOC.HOSPP ---
- Subjective Encounter Date: 12/27/19 Encounter Time: 09:00 Subjective: no pain in his leg feels better, no sob - Objective Vital Signs & Weight: Vital Signs (12 hours) Temp Pulse Resp BP Pulse Ox 12/27/19 07:24 98.0 F 62 20 137/70 94 L Weight Weight 213 lb I&O: 12/26/19 12/27/19 12/28/19 06:59 06:59 06:59 Intake Total 240 Balance 240 Result Diagrams: 12/27/19 05:27 12/27/19 05:27 Additional Labs: Accuchecks 12/27/19 11:12 POC Glucose 152 H Hospitalist ROS - Medication Medications: Active Medications Generic Name Dose Route Start Last Admin Trade Name Freq PRN Reason Stop Dose Admin Enoxaparin Sodium 40 mg 12/27/19 09:00 12/27/19 09:39 Enoxaparin Sodium 40 Mg/0.4 Ml Syringe SC Not Given 0900 ABBI Famotidine 20 mg 12/26/19 21:00 12/27/19 08:19 Famotidine 20 Mg Tab PO 20 mg BID ABBI Administration Finasteride 5 mg 12/27/19 09:00 12/27/19 08:19 Finasteride 5 Mg Tab PO 5 mg DAILY ABBI Administration Gabapentin 600 mg 12/27/19 09:00 12/27/19 08:19 Gabapentin 300 Mg Cap PO 600 mg DAILY ABBI Administration Gabapentin 1,200 mg 12/26/19 21:00 12/26/19 21:01 Gabapentin 400 Mg Cap PO Not Given HS ABBI Glimepiride 2 mg 12/26/19 16:30 12/27/19 08:18 Glimepiride 2 Mg Tab PO 2 mg BID-AC ABBI Administration Vancomycin HCl 1.5 gm/ Device 300 mls @ 200 mls/hr 12/26/19 20:00 12/27/19 08:18 IVPB 300 mls 0800,2000 ABBI Administration Ceftriaxone Sodium 2 gm/ 100 mls @ 200 mls/hr 12/27/19 10:00 12/27/19 11:18 Sodium Chloride IVPB 100 mls 1000 ABBI Administration Insulin Human Lispro 0 units 12/26/19 16:16 12/27/19 11:27 Humalog 300 Units/3 Ml Vial SC 2 unit .MODERATE SLIDING SC PRN Administration Moderate Correctional Scale Pramipexole Dihydrochloride 0.25 mg 12/26/19 21:00 12/27/19 08:20 Pramipexole Di-Hcl 0.25 Mg Tab PO 0.25 mg BID ABBI Administration Rosuvastatin Calcium 10 mg 12/26/19 21:00 12/26/19 21:01 Rosuvastatin 10 Mg Tab PO Not Given QPM ABBI Sacubitril/Valsartan 1 tab 12/26/19 21:00 12/27/19 08:20 Sacubitril 24mg/Valsartan 26mg Tab PO 1 tab BID ABBI Administration - Exam General Appearance: awake alert Eye: PERRL, anicteric sclera ENT: no oropharyngeal lesions, moist mucosa Neck: supple, no JVD Heart: RRR, no murmur Respiratory: no wheezes, no rales Gastrointestinal: soft, non-tender, non-distended, normal bowel sounds Extremities: no edema Extremities - other findings: left leg erythema+ Neurological: cranial nerve grossly intact, no focal deficits Psychiatric: normal affect, A&O x 3 Hosp A/P (1) Left leg cellulitis Code(s): L03.116 - CELLULITIS OF LEFT LOWER LIMB Status: Acute (2) PVD (peripheral vascular disease) Code(s): I73.9 - PERIPHERAL VASCULAR DISEASE, UNSPECIFIED Status: Acute (3) DM type 2 (diabetes mellitus, type 2) Status: Chronic Qualifiers: Diabetes mellitus fci insulin use: without terminal make up operator use (4) Dyslipidemia Code(s): E78.5 - HYPERLIPIDEMIA, UNSPECIFIED Status: Chronic (5) Coronary artery disease Code(s): I25.10 - ATHSCL HEART DISEASE OF [place] CORONARY ARTERY W/O ANG PCTRS Status: Chronic Qualifiers: Coronary Disease-Associated Artery/Lesion type: bypass graft [place] vs. transplanted heart: [place] heart Associated angina: without angina Qualified Code(s): I25.810 - Atherosclerosis of coronary artery bypass graft(s) without angina pectoris (6) Hypertension Code(s): I10 - ESSENTIAL (PRIMARY) HYPERTENSION Status: Chronic Qualifiers: Hypertension type: essential hypertension Qualified Code(s): I10 - Essential (primary) hypertension - Plan is on vanc and ceftriaxone appreciate help from , may need vascular procedure continue home meds as above MRA and CT aorta with run off results noted hemostable
[2019-12-27] MEDS ORDERED: Magnevist 469MG/ML 20 ML VIAL ONE ×2 (13:46)
--- NOTE | 2019-12-27 16:54 | PRG ---
DATE OF SERVICE: CT scan was reviewed this morning and did not show enough contrast getting down the left lower leg to determine whether revascularization was possible. I did an MRA of his lower extremities and indeed his popliteal artery and tibioperoneal vessels do show up and so I think that he is a candidate for a left common profunda femoral endarterectomy and then a [place]-Tristan bypass to his popliteal artery probably below the knee. I have discussed this with him and he is agreeable to proceed. I have also discussed it with his son by phone. His right superficial femoral artery is also occluded on the opposite leg; however, symptoms at this time did not warrant any intervention. Job ID: [id number]
[2019-12-27] MEDS: Gabapentin 400 MG CAP PO SCH (20:44)
[2019-12-27] MEDS: Rosuvastatin 10 MG TAB PO SCH (20:44)
[2019-12-28 07:43] LABS: Vancomycin, Trough 14.6 ug/mL
[2019-12-28] MEDS: Vancomycin 1.5 GRAM/300 ML BAG 1.5 GM in Premix Bag 1 BAG IVPB SCH ×2 (09:24→21:48)
[2019-12-28] MEDS: Famotidine 20 MG TAB PO SCH ×2 (09:29→21:51)
[2019-12-28] MEDS: Gabapentin 300 MG CAP PO SCH (09:29)
[2019-12-28] MEDS: Finasteride 5 MG TAB PO SCH (09:29)
[2019-12-28] MEDS: Glimepiride 2 MG TAB PO SCH ×2 (09:29→21:49)
[2019-12-28] MEDS: Pramipexole Di-HCl 0.25 MG TAB PO SCH ×2 (09:30→21:49)
[2019-12-28] MEDS ORDERED: EPHEDRINE 25 MG/5 ML SYRINGE ONE (09:47)
[2019-12-28] MEDS ORDERED: Rocuronium Bromide 10 MG/ML (10ML VIAL) ONE (09:47)
[2019-12-28] MEDS ORDERED: PHENYLEPHRINE-NS 100 MCG/ML 10 ML SYRINGE ONE (09:47)
[2019-12-28] MEDS ORDERED: Metoprolol Tartrate 5 MG/5 ML VIAL ONE (09:47)
[2019-12-28] MEDS ORDERED: Labetalol HCl 100 MG/20 ML VIAL ONE (09:47)
[2019-12-28] MEDS ORDERED: Lidocaine 1% PF 5 ML VIAL ONE (09:47)
[2019-12-28] MEDS ORDERED: Glycopyrrolate 0.2 MG/ML 5 ML SYRINGE ONE (09:47)
[2019-12-28] MEDS ORDERED: PROPOFOL 200 MG/20 ML VIAL ONE (09:47)
[2019-12-28] MEDS: cefTRIAXone\\ROCEPHIN 2 GM in Sodium Chloride 0.9% 100 ML IVPB SCH (11:05)
[2019-12-28 12:01] LABS: SARS-CoV-2 MS2 Positive; SARS-CoV-2 N Gene Negative; SARS-CoV-2 S Gene Negative; SARS-CoV-2 by NAA Not Detected (NotDetected); SARS-CoV-2 orf1ab Negative
[2019-12-28] MEDS ORDERED: Fentanyl 100 MCG/2 ML VIAL ONE ×3 (12:32→20:35)
[2019-12-28] MEDS ORDERED: Heparin 5,000 UNITS/ML VIAL ONE ×2 (12:34→13:25)
--- NOTE | 2019-12-28 13:09 | PDOC.HOSPP ---
- Subjective Encounter Date: 12/28/19 Encounter Time: 07:45 Subjective: left foot and ankle redness is receding well is able to ambulate a bit - Objective Vital Signs & Weight: Vital Signs (12 hours) Temp Pulse Resp BP Pulse Ox 12/28/19 11:00 97.9 F 52 L 20 146/68 H 97 12/28/19 07:35 97.7 F 62 20 154/73 H 98 12/28/19 04:00 97.6 F 57 L 18 158/72 H 97 Weight Weight 213 lb I&O: 12/27/19 12/28/19 12/29/19 06:59 06:59 06:59 Intake Total 240 Balance 240 Result Diagrams: 12/27/19 05:27 12/27/19 05:27 Additional Labs: Accuchecks 12/28/19 12/28/19 12/27/19 12:56 05:19 20:33 POC Glucose 101 H 108 H 147 H 12/27/19 16:42 POC Glucose 159 H Hospitalist ROS - Medication Medications: Active Medications Generic Name Dose Route Start Last Admin Trade Name Freq PRN Reason Stop Dose Admin Famotidine 20 mg 12/26/19 21:00 12/28/19 09:29 Famotidine 20 Mg Tab PO Not Given BID ABBI Finasteride 5 mg 12/27/19 09:00 12/28/19 09:29 Finasteride 5 Mg Tab PO Not Given DAILY ABBI Gabapentin 600 mg 12/27/19 09:00 12/28/19 09:29 Gabapentin 300 Mg Cap PO Not Given DAILY ABBI Gabapentin 1,200 mg 12/26/19 21:00 12/27/19 20:44 Gabapentin 400 Mg Cap PO 1,200 mg HS ABBI Administration Glimepiride 2 mg 12/26/19 16:30 12/28/19 09:29 Glimepiride 2 Mg Tab PO Not Given BID-AC ABBI Vancomycin HCl 1.5 gm/ Device 300 mls @ 200 mls/hr 12/26/19 20:00 12/28/19 09:24 IVPB 300 mls 0800,2000 ABBI Administration Ceftriaxone Sodium 2 gm/ 100 mls @ 200 mls/hr 12/27/19 10:00 12/28/19 11:05 Sodium Chloride IVPB 100 mls 1000 ABBI Administration Insulin Human Lispro 0 units 12/26/19 16:16 12/27/19 18:21 Humalog 300 Units/3 Ml Vial SC 2 unit .MODERATE SLIDING SC PRN Administration Moderate Correctional Scale Pramipexole Dihydrochloride 0.25 mg 12/26/19 21:00 12/28/19 09:30 Pramipexole Di-Hcl 0.25 Mg Tab PO Not Given BID ABBI Rosuvastatin Calcium 10 mg 12/26/19 21:00 12/27/19 20:44 Rosuvastatin 10 Mg Tab PO 10 mg QPM ABBI Administration Sacubitril/Valsartan 1 tab 12/26/19 21:00 12/28/19 09:30 Sacubitril 24mg/Valsartan 26mg Tab PO Not Given BID ABBI - Exam General Appearance: awake alert Eye: PERRL, anicteric sclera ENT: no oropharyngeal lesions, moist mucosa Neck: supple, no JVD Heart: RRR, no murmur Respiratory: no wheezes, no rales Gastrointestinal: soft, non-tender, non-distended, normal bowel sounds Extremities: no cyanosis, no edema Neurological: cranial nerve grossly intact, no focal deficits Psychiatric: normal affect, A&O x 3 Hosp A/P (1) Left leg cellulitis Code(s): L03.116 - CELLULITIS OF LEFT LOWER LIMB Status: Acute (2) PVD (peripheral vascular disease) Code(s): I73.9 - PERIPHERAL VASCULAR DISEASE, UNSPECIFIED Status: Acute (3) DM type 2 (diabetes mellitus, type 2) Status: Chronic Qualifiers: Diabetes mellitus petroleum terminal plant operator insulin use: without petroleum terminal plant operator use (4) Dyslipidemia Code(s): E78.5 - HYPERLIPIDEMIA, UNSPECIFIED Status: Chronic (5) Coronary artery disease Code(s): I25.10 - ATHSCL HEART DISEASE OF [place] CORONARY ARTERY W/O ANG PCTRS Status: Chronic Qualifiers: Coronary Disease-Associated Artery/Lesion type: bypass graft [place] vs. transplanted heart: [place] heart Associated angina: without angina Qualified Code(s): I25.810 - Atherosclerosis of coronary artery bypass graft(s) without angina pectoris (6) Hypertension Code(s): I10 - ESSENTIAL (PRIMARY) HYPERTENSION Status: Chronic Qualifiers: Hypertension type: essential hypertension Qualified Code(s): I10 - Essential (primary) hypertension - Plan is on vanc and ceftriaxone appreciate help from , is npo for vascular procedure today continue home meds as above MRA and CT aorta with run off results noted hemostable
[2019-12-28] MEDS ORDERED: Protamine Sulfate 50 MG/5 ML VIAL ONE (13:25)
[2019-12-28] MEDS ORDERED: Fentanyl 100 MCG/2 ML VIAL SLOW IVP PRN (17:04)
[2019-12-28] MEDS ORDERED: Promethazine HCl 25 MG/ML VIAL IM PRN (17:30)
[2019-12-28] MEDS ORDERED: Ondansetron HCl/PF 4 MG/2 ML Vial IVP PRN (17:30)
[2019-12-28] MEDS ORDERED: Promethazine HCl 25 MG/ML VIAL SLOW IVP PRN (17:30)
[2019-12-28] MEDS: HYDROcodone/Acetaminophen 5/325 mg Tablet PO PRN (21:48)
[2019-12-28] MEDS: Gabapentin 400 MG CAP PO SCH (21:50)
[2019-12-28] MEDS: Rosuvastatin 10 MG TAB PO SCH (21:52)
[2019-12-29] MEDS ORDERED: Sodium Chloride 0.9% 500 ML IV SCH (00:30)
[2019-12-29 00:58] LABS: #Eosinphils 0.2 thou/uL (0.0-0.7); #Lymphocytes 1.2 thou/uL (1.20-3.40); #Monocytes 0.8 thou/uL (0.11-0.59); #Neutrophils 7.4 thou/uL (1.40-6.50); %Basophils 0.4 % (0.0-1.0); %Eosinophils 2.2 % (0.0-10.0); %Lymphocytes 12.1 % (21.0-51.0); %Monocytes 8.2 % (0.0-10.0); %Neutrophils 77.1 % (42.0-75.0); Hemoglobin 14.7 g/dL (14.0-18.0); Mean Corpuscular Hemoglobin 32.2 pg (27.0-31.0); Mean Corpuscular Volume 97.7 fL (78.0-98.0); Mean Platelet Volume 7.5 fL (7.4-10.4); Platelet Count 111 thou/uL (130-400); RBC Distribution Width 13.8 % (11.5-14.5); Red Blood Cell (RBC) Count 4.56 mill/uL (4.70-6.10); White Blood Cell (WBC) Count 9.6 thou/uL (4.8-10.8)
[2019-12-29 06:33] LABS: #Eosinphils 0.2 thou/uL (0.0-0.7); #Lymphocytes 1.2 thou/uL (1.20-3.40); #Monocytes 0.8 thou/uL (0.11-0.59); #Neutrophils 5.7 thou/uL (1.40-6.50); %Basophils 0.3 % (0.0-1.0); %Eosinophils 2.6 % (0.0-10.0); %Lymphocytes 15.5 % (21.0-51.0); %Monocytes 9.9 % (0.0-10.0); %Neutrophils 71.7 % (42.0-75.0); Hemoglobin 14.4 g/dL (14.0-18.0); Mean Corpuscular HGB CONC 32.6 g/dL (32.0-36.0); Mean Corpuscular Hemoglobin 32.6 pg (27.0-31.0); Mean Platelet Volume 7.5 fL (7.4-10.4); Platelet Count 109 thou/uL (130-400); RBC Distribution Width 13.7 % (11.5-14.5); Red Blood Cell (RBC) Count 4.42 mill/uL (4.70-6.10); White Blood Cell (WBC) Count 7.9 thou/uL (4.8-10.8)
[2019-12-29] MEDS ORDERED: Sodium Chloride 0.9% 1,000 ML IV SCH (07:15)
[2019-12-29] MEDS: Clopidogrel Bisulfate 75 MG TAB PO SCH (08:05)
[2019-12-29] MEDS: Pramipexole Di-HCl 0.25 MG TAB PO SCH ×2 (08:05→20:47)
[2019-12-29] MEDS: Gabapentin 300 MG CAP PO SCH (08:05)
[2019-12-29] MEDS: Finasteride 5 MG TAB PO SCH (08:05)
[2019-12-29] MEDS: Vancomycin 1.5 GRAM/300 ML BAG 1.5 GM in Premix Bag 1 BAG IVPB SCH (08:05)
[2019-12-29] MEDS: Glimepiride 2 MG TAB PO SCH ×2 (08:06→18:40)
[2019-12-29] MEDS: Famotidine 20 MG TAB PO SCH ×2 (09:00→20:47)
[2019-12-29 09:44] LABS: Anion Gap 12 mmol/L (10-20); BUN (Urea Nitrogen) 23 mg/dL (8.4-25.7); Calc. Creatinine Clearance 105 mL/min (70-130); Calcium 8.2 mg/dL (7.8-10.44); Carbon Dioxide 21 mmol/L (23-31); Chloride 103 mmol/L (98-107); Estimated GFR-MDRD 90; Glucose 144 mg/dL (83-110); Magnesium 1.9 mg/dL (1.6-2.6); Potassium 3.9 mmol/L (3.5-5.1); Sodium 132 mmol/L (136-145)
[2019-12-29 09:52] LABS: Lactic Acid 1.6 mmol/L (0.5-2.2)
[2019-12-29] MEDS: cefTRIAXone\\ROCEPHIN 2 GM in Sodium Chloride 0.9% 100 ML IVPB SCH (11:16)
--- NOTE | 2019-12-29 11:48 | PDOC.HOSPP ---
- Subjective Encounter Date: 12/29/19 Encounter Time: 09:30 Subjective: feels better, is slowly mobilizing this am no chest pain or palp - Objective Vital Signs & Weight: Vital Signs (12 hours) Temp Pulse Resp BP Pulse Ox 12/29/19 08:38 98.0 F 61 18 97/53 L 92 L 12/29/19 08:00 92 L Weight Weight 213 lb I&O: 12/28/19 12/29/19 12/30/19 06:59 06:59 06:59 Output Total 1600 Balance -1600 Result Diagrams: 12/29/19 04:46 12/29/19 00:34 Additional Labs: Accuchecks 12/29/19 12/29/19 12/28/19 11:35 06:48 21:52 POC Glucose 116 H 106 H 91 12/28/19 12/28/19 12:56 11:21 POC Glucose 101 H 112 H Hospitalist ROS - Medication Medications: Active Medications Generic Name Dose Route Start Last Admin Trade Name Freq PRN Reason Stop Dose Admin Hydrocodone Bitart/Acetaminophen 2 tab 12/28/19 17:04 12/28/19 21:48 Hydrocodone/Acetaminophen 5/325 Mg Tablet PO 2 tab Q4H PRN Administration Pain 7-10 Clopidogrel Bisulfate 75 mg 12/29/19 09:00 12/29/19 08:05 Clopidogrel Bisulfate 75 Mg Tab PO 75 mg DAILY ABBI Administration Famotidine 20 mg 12/26/19 21:00 12/29/19 09:00 Famotidine 20 Mg Tab PO 20 mg BID ABBI Administration Finasteride 5 mg 12/27/19 09:00 12/29/19 08:05 Finasteride 5 Mg Tab PO 5 mg DAILY ABBI Administration Gabapentin 600 mg 12/27/19 09:00 12/29/19 08:05 Gabapentin 300 Mg Cap PO 600 mg DAILY ABBI Administration Gabapentin 1,200 mg 12/26/19 21:00 12/28/19 21:50 Gabapentin 400 Mg Cap PO 1,200 mg HS ABBI Administration Glimepiride 2 mg 12/26/19 16:30 12/29/19 08:06 Glimepiride 2 Mg Tab PO 2 mg BID-AC ABBI Administration Vancomycin HCl 1.5 gm/ Device 300 mls @ 200 mls/hr 12/26/19 20:00 12/29/19 08:05 IVPB 300 mls 0800,2000 ABBI Administration Ceftriaxone Sodium 2 gm/ 100 mls @ 200 mls/hr 12/27/19 10:00 12/29/19 11:16 Sodium Chloride IVPB 100 mls 1000 ABBI Administration Sodium Chloride 1,000 mls @ 50 mls/hr 12/29/19 07:15 12/29/19 07:23 Normal Saline 0.9% IV 1,000 mls .Q20H ABBI Administration Insulin Human Lispro 0 units 12/26/19 16:16 12/27/19 18:21 Humalog 300 Units/3 Ml Vial SC 2 unit .MODERATE SLIDING SC PRN Administration Moderate Correctional Scale Pramipexole Dihydrochloride 0.25 mg 12/26/19 21:00 12/29/19 08:05 Pramipexole Di-Hcl 0.25 Mg Tab PO 0.25 mg BID ABBI Administration Rosuvastatin Calcium 10 mg 12/26/19 21:00 12/28/19 21:52 Rosuvastatin 10 Mg Tab PO 10 mg QPM ABBI Administration Sacubitril/Valsartan 1 tab 12/26/19 21:00 12/29/19 08:06 Sacubitril 24mg/Valsartan 26mg Tab PO 1 tab BID ABBI Administration Sodium Chloride 10 ml 12/29/19 09:00 12/29/19 10:35 Flush - Normal Saline 10 Ml Syringe IVF 10 ml Q12HR ABBI Administration - Exam General Appearance: awake alert Eye: PERRL, anicteric sclera ENT: no oropharyngeal lesions, moist mucosa Neck: supple, no JVD Heart: RRR, no murmur Respiratory: no wheezes, no rales Gastrointestinal: soft, non-tender, non-distended, normal bowel sounds Extremities: no cyanosis, no edema Neurological: cranial nerve grossly intact, no focal deficits Psychiatric: normal affect, A&O x 3 Hosp A/P (1) Left leg cellulitis Code(s): L03.116 - CELLULITIS OF LEFT LOWER LIMB Status: Acute (2) PVD (peripheral vascular disease) Code(s): I73.9 - PERIPHERAL VASCULAR DISEASE, UNSPECIFIED Status: Acute (3) DM type 2 (diabetes mellitus, type 2) Status: Chronic Qualifiers: Diabetes mellitus longterm insulin use: without exterminator helper termite use (4) Dyslipidemia Code(s): E78.5 - HYPERLIPIDEMIA, UNSPECIFIED Status: Chronic (5) Coronary artery disease Code(s): I25.10 - ATHSCL HEART DISEASE OF [place] CORONARY ARTERY W/O ANG PCTRS Status: Chronic Qualifiers: Coronary Disease-Associated Artery/Lesion type: bypass graft [place] vs. transplanted heart: [place] heart Associated angina: without angina Qualified Code(s): I25.810 - Atherosclerosis of coronary artery bypass graft(s) without angina pectoris (6) Hypertension Code(s): I10 - ESSENTIAL (PRIMARY) HYPERTENSION Status: Chronic Qualifiers: Hypertension type: essential hypertension Qualified Code(s): I10 - Essential (primary) hypertension - Plan s/p left fempop with endarterectomy of profunda is on vanc and ceftriaxone, plan to switch to oral antibiotics in am appreciate help from continue home meds as above MRA and CT aorta with run off results noted hemostable Likely dc plan in am if cleared by will need HH with nursing and PT on discharge if he didn't ambulate much here.
--- NOTE | 2019-12-29 12:43 | OP ---
DATE OF PROCEDURE: 12/28/2019 PREOPERATIVE DIAGNOSIS: Gangrene, left great toe. PROCEDURES PERFORMED: Left common femoral endarterectomy including the profunda femoral with patch of the common femoral with a bovine patch and then a distal common femoral to infrageniculate popliteal artery with an 8 mm thin-walled [place]-Tristan. ANESTHESIA: General. EBL: 300 mL. DESCRIPTION OF PROCEDURE: After adequate anesthesia had been obtained, the patient was prepped and draped and simultaneously an incision was made in the groin area as well as the medial aspect of the upper lower leg. Popliteal artery was isolated for about 4 cm and then the common femoral artery was isolated from just below the inguinal ligament to the bifurcation of the deep femoral artery. Following tunneling from the groin to the infrageniculate popliteal artery, an 8 mm thin-walled graft was brought through this tunnel and 7500 units of heparin given and ACT was checked. Popliteal artery was opened and the ringed [place]-Tristan was anastomosed in an end-to-side fashion there and wound packed. The common femoral artery was then clamped proximally and then the profunda branches including a posterior branch which was controlled with a loop in the mid common femoral artery. Superficial femoral artery was clamped as it was patent for about 3 cm. Arteriotomy performed with a 10 blade and endarterectomy was performed of the common femoral artery extending down the superficial femoral, about 2 cm and then down the main profunda branch that was nearly occluded. The posterior branch also was cleaned out and following this, a bovine patch was used to close the common femoral artery extending onto the profunda femoral artery. The incision had also been extended onto the superficial femoral artery into this area. The ringed [place]-Tristan was anastomosed to the superficial femoral artery and then to the bovine patch to complete the suture line. After back flushing and forward flushing, flow was restored, and after a prolonged period of obtaining hemostasis after protamine administration including use of FloSeal, the wounds were finally hemostatic and closed in layers and the patient is to be taken to the recovery room. Job ID: [id number]
[2019-12-29 14:30] LABS: SARS-CoV-2 IgG Ab Reactive (NonReactive)
[2019-12-29] MEDS: HYDROcodone/Acetaminophen 5/325 mg Tablet PO PRN (18:40)
[2019-12-29] MEDS: Gabapentin 400 MG CAP PO SCH (20:47)
[2019-12-29] MEDS: Rosuvastatin 10 MG TAB PO SCH (20:47)
--- NOTE | 2019-12-30 07:33 | PRG ---
DATE OF SERVICE: 12/30/2019 Uneventful night. Broderick catheter was removed and he voided well. His leg incisions are clean and dry and he has only mild edema of his lower leg with good red color. He had excellent Doppler signals in his DP and PT yesterday compared to only a monophasic signal in his PT preop. He is ready for discharge today and he is going to try Tylenol and ibuprofen for pain at home. I do not think there is any need for home antibiotics and I will follow him up in 2 to 3 weeks. He has been given discharge and wound care instructions and understands. Job ID: [id number]
[2019-12-30] MEDS: Gabapentin 300 MG CAP PO SCH (08:54)
[2019-12-30] MEDS: Finasteride 5 MG TAB PO SCH (08:54)
[2019-12-30] MEDS: Clopidogrel Bisulfate 75 MG TAB PO SCH (08:54)
[2019-12-30] MEDS: Pramipexole Di-HCl 0.25 MG TAB PO SCH (08:54)
[2019-12-30] MEDS: Glimepiride 2 MG TAB PO SCH (08:54)
[2019-12-30] MEDS: Famotidine 20 MG TAB PO SCH (09:00)
[2019-12-30 11:26] VITALS: BP 114/66; TEMP 98.2
[2019-12-30] MEDS: cefTRIAXone\\ROCEPHIN 2 GM in Sodium Chloride 0.9% 100 ML IVPB SCH (11:56)
--- NOTE | 2019-12-30 14:15 | DIS ---
DATE OF ADMISSION: 12/26/2019 DATE OF DISCHARGE: 12/30/2019 DISCHARGE DISPOSITION: Home. PRIMARY DISCHARGE DIAGNOSES: Left leg cellulitis with peripheral vascular disease, status post left common femoral endarterectomy including the profunda femoral with patch, common femoral with a bovine patch, then a distal common femoral to infrageniculate popliteal artery with 8 mm thin-walled Reeds-Tristan graft. All of the above procedures were done by Dr. Albrecht on 12/28/2019. SECONDARY DISCHARGE DIAGNOSES: Diabetes mellitus type 2, dyslipidemia, coronary artery disease, and hypertension. PROCEDURES DONE DURING HOSPITALIZATION: CT angio aorta bilateral with runoff showed suboptimal evaluation of left and right lower extremity arterial system due to poor timing of contrast bolus. There does appear to be significant arthrosclerosis and occlusion involving bilateral superficial femoral arteries and popliteal arteries. MR angiogram with IV contrast of lower extremities done showed complete occlusion of superficial femoral arteries bilaterally with reconstituted flow through collaterals, where the deep profunda femoral artery at the level of the popliteal artery bilaterally. There is at least three-vessel runoff to both lower extremities to the level of ankle bilaterally. Moderate narrowing of the origin of proximal aspect of superior mesenteric artery. The patient has had left common femoral endarterectomy including profunda femoral with patch, the common femoral with a bovine patch and then a distal common femoral to infrageniculate popliteal artery with 8 mm thin-walled Reeds-Tristan done on 12/28/[address] Albrecht. H and H 14 and 44, platelet count 109, BUN 23, creatinine 0.8. COVID-19 PCR was not detected on 12/28/2019. IgG antibody COVID-19 was reactive with index of 6.40. DISCHARGE MEDICATIONS: 1. Plavix 75 mg p.o. daily. 2. Coreg 3.125 mg p.o. twice daily. 3. Aspirin 81 mg p.o. daily. 4. Glimepiride 4 mg twice daily. 5. Entresto 24/26 mg one tablet twice daily. 6. Finasteride 5 mg daily. 7. Gabapentin 1200 mg p.o. q.h.s. and 600 mg p.o. daily. 8. Empagliflozin 10 mg p.o. daily. 9. Pramipexole 0.25 mg p.o. twice daily. 10. Rosuvastatin 10 mg p.o. q.p.m. ALLERGIES: NO KNOWN DRUG ALLERGIES. DISCHARGE PLAN: The patient to follow up with Dr. Alexander, his primary care physician, in [address] Albrecht in 2 to 3 weeks. BRIEF COURSE DURING HOSPITALIZATION: The patient initially got admitted on the 25 of December after he failed outpatient antibiotics for left leg and foot cellulitis with nonhealing ulcer over the tip of the great toe on the plantar aspect. He has known history of peripheral vascular disease, and a CT and MR angiogram of the lower extremities were obtained. He has had consultation with Dr. Albrecht. The patient has had vascular procedures as described above for the left lower extremity. He was on broad-spectrum antibiotics, and this has been discontinued at the time of discharge. He is ambulating and is eating well. He is wanting to go home today. Dr. Albrecht has cleared him for discharge. He needs to follow up with Dr. Albrecht in 2 to 3 weeks and primary care physician in 1 week. Please note I have seen and examined the patient on the day of discharge. Job ID: [id number]
== END 2019-12-30 12:35 | disposition home or self-care (01) | DRG 253 ==
LOC: ERS 12:05 → T4-A 15:57 → CCU 12-28 12:33 → SJJU 12-28 21:07
PROVIDERS: ADMIT Internal Medicine; ATTEND Internal Medicine
PROC: 04CL0ZZ Extirpation of Matter from Left Femoral Artery, Open Approach (ICD-10-PCS; principal; 2019-12-28)
PROC: 041L0JL Bypass Left Femoral Artery to Popliteal Artery with Synthetic Substitute, Open Approach (ICD-10-PCS; 2019-12-28)
PROC: 04UL0JZ Supplement Left Femoral Artery with Synthetic Substitute, Open Approach (ICD-10-PCS; 2019-12-28)
DX: E11.52 Type 2 diabetes mellitus with diabetic peripheral angiopathy with gangrene (principal); L97.429 Non-pressure chronic ulcer of left heel and midfoot with unspecified severity; L03.116 Cellulitis of left lower limb; I73.9 Peripheral vascular disease, unspecified; E78.00 Pure hypercholesterolemia, unspecified; I11.0 Hypertensive heart disease with heart failure; I25.10 Atherosclerotic heart disease of native coronary artery without angina pectoris; I50.9 Heart failure, unspecified; I77.1 Stricture of artery; N40.0 Benign prostatic hyperplasia without lower urinary tract symptoms; G25.81 Restless legs syndrome; E11.42 Type 2 diabetes mellitus with diabetic polyneuropathy; Z20.828 Contact with and (suspected) exposure to other viral communicable diseases; Z95.1 Presence of aortocoronary bypass graft; Z90.49 Acquired absence of other specified parts of digestive tract; Z79.899 Other long term (current) drug therapy; Z79.82 Long term (current) use of aspirin; Z95.4 Presence of other heart-valve replacement
CPT/HCPCS: 36415; 36416; 74185; 75635; 80048; 80202; 83605; 83735; 83880; 85025; 86769; 86850; 86900; 86901; 87635; 93923; A9579; C8900; C8912; J0696; J1644; J2704; J2720; J3010; J3370; J3490; Q9967; U0003

== ENCOUNTER 2020-04-22 15:16 | Inpatient (IN) | payer MEDICARE ==
[2020-04-22] MEDS ORDERED: Furosemide 40 MG/4 ML VIAL ONE (16:47)
[2020-04-22 17:26] LABS: CKMB 4.4 ng/mL (0-6.6)
[2020-04-22] MEDS ORDERED: Acetaminophen 325 MG TAB PO PRN (18:49)
[2020-04-22] MEDS ORDERED: Senokot S 8.6-50 MG TAB PO PRN (18:49)
[2020-04-22] MEDS ORDERED: Enoxaparin Sodium 100 MG/ML SYRINGE ONE (20:00)
[2020-04-22 20:10] LABS: Troponin I 0.315 ng/mL (< 0.028)
[2020-04-22] MEDS ORDERED: Heparin 5,000 UNITS/ML VIAL SC SCH (21:00)
[2020-04-22 21:29] VITALS: BMI 27.2
[2020-04-22] MEDS ORDERED: Dextrose 5% in Water 1,000 ML IV PRN (21:29)
[2020-04-22] MEDS ORDERED: Dextrose 50% Abboject 50 ML SYRINGE SLOW IVP PRN (21:29)
[2020-04-22] MEDS ORDERED: HumaLOG 300 UNITS/3 ML VIAL SC PRN ×2 (21:29)
[2020-04-22] MEDS ORDERED: Enoxaparin Sodium 100 MG/ML SYRINGE SC SCH (21:30)
[2020-04-22] MEDS: Famotidine 20 MG TAB PO SCH (22:15)
--- NOTE | 2020-04-22 23:07 | HP ---
PRIMARY CARE PHYSICIAN: Dr. Wyatt. CHIEF COMPLAINT: Nausea, vomiting, diarrhea, and abdominal swelling. HISTORY OF PRESENT ILLNESS: The patient was seen at [facility] today for evaluation of nausea, vomiting, diarrhea, and dehydration. He reports that his abdominal area has been swelling, feels more swollen and he has had a hard time breathing. He reports the nausea, vomiting have been ongoing for the last week. He reports that he has lost his son two weeks ago due to COVID. Reports that he lost his last October due to COVID. He says he has been tested seven times and it has come back negative. He reports that Dr. Wyatt started him on a new medication, but it lasted today and he was back to feeling very bloated and not well. He does have a history of coronary artery disease, status post CABG, but he denies any chest pain. By the time we saw him in the ER, he had been given Lasix at [facility] after being given fluids over in [place] and he had been able to urinate quite a bit of fluid out. He reports that the bloating feeling, shortness of breath have resolved and generally he feels a little bit better. He is sad due to loss of his family members in the last several months, but denies any SI, SA. He reports that he has a lot to do at home and wants to get back to feeling better, so he can go do it. Workup in the ER with white blood cell count of 5.1, hemoglobin 11.7, hematocrit is 42.2, and platelet count is 128, which is at baseline for this patient. Glucose was 158. His AST was elevated at 53, ALT 116. These are slightly more elevated than they were the last time they were checked. BNP on this visit was 3363, which is significantly higher than it was when it was checked in December of 2019. He had an abdominal pelvis CT, which showed a small moderate amount of volume of ascites, bilateral pleural effusions, anasarca, heavily calcified prostate gland, severe lumbar spondylosis. No small bowel obstruction or any obstructive uropathy. He was transferred from [facility] to [facility], where he was given a dose of Lasix, felt a little bit better and then admitted to telemetry for further management. His troponins have trended upwards, they started out at 0.067 and the third one is 0.315. REVIEW OF SYSTEMS: The patient denies fever, chills, or cough. He does report some shortness of breath, which have improved after the Lasix. He does report some abdominal distention, nausea, vomiting, generally unwell. Does report feelings of sadness and grief. All others systems are reviewed and are negative unless mentioned above in HPI. PAST MEDICAL HISTORY: Coronary artery disease, congestive heart failure, diabetes, hyperlipidemia, hypertension. PAST SURGICAL HISTORY: Cardiac stent x2, coronary artery bypass graft, 5 vessel. He has also had a valve replaced. Surgical history of cholecystectomy. PSYCHIATRIC HISTORY: None. SOCIAL HISTORY: He does drink alcohol every day. Denies any drug use. Has no smoking history. ALLERGIES: NONE. CURRENT MEDICATIONS: 1. Pramipexole 0.25 mg p.o. b.i.d. 2. Gabapentin 600 mg b.i.d. 3. Plavix 75 mg p.o. once a day. 4. Crestor 10 mg p.o. once a day. 5. Jardiance 25 mg p.o. once a day. 6. Aspirin 81 mg p.o. once a day. 7. Diclofenac 75 mg p.o. b.i.d. 8. Carvedilol 3.125 p.o. b.i.d. 9. Amaryl 4 mg p.o. once a day. 10. Entresto / once a day. 11. Lasix 20 mg p.o. once a day. PHYSICAL EXAMINATION: VITAL SIGNS: Blood pressure 119/77, pulse is 100, respiratory rate is 20, pO2 sats are 97% on room air, temperature is 98.1. CONSTITUTIONAL: He is nontoxic appearing. He is alert and oriented to person, place, and time. He is hard of hearing, but does answer questions appropriately. HEENT: Head is atraumatic and normocephalic. Eyes, pupils are equally round and reactive to light. Extraocular muscles are intact. ENT, mouth exam is normal. Mucous membranes are moist. He is wearing hearing aids. NECK: Normal range of motion. Trachea is midline. RESPIRATORY/CHEST: Breath sounds are clear. Chest expansion is equal. CARDIOVASCULAR: Regular rate and rhythm. Heart sounds are normal. ABDOMEN: Nontender. Bowel sounds are heard. Belly is protuberant. BACK: Normal range of motion. No tenderness. EXTREMITIES: Upper extremity normal range of motion. Motor strength is normal. Lower extremity, he has 2+ pitting edema. Normal range of motion. Motor strength is normal. Pedal pulses are normal. NEURO: The patient is oriented to person, place, and time. SKIN: Warm and dry. Normal in color. PSYCH: He has a flat affect. Expresses feelings of grief. ASSESSMENT AND PLAN: 1. Congestive heart failure exacerbation. The patient was given Lasix in the emergency room, which appears to help the symptoms. He reports that he has no longer short of breath. He believes his swelling in the main abdomen cavity has decreased. He does have +2 pitting edema bilaterally. We will continue the Lasix IV push daily. His troponin did trend up and so we have added Lovenox 1 mg/kg. We will add Cardiology consult. We would appreciate their recommendations moving forward. 2. History of coronary artery disease. We will continue his aspirin and Plavix. 3. History of neuropathy. We will continue his home medications. 4. History of hypertension. We will continue his home medications. 5. History of diabetes type 2, add before meals and at bedtime Accu-Cheks sliding scale as needed for coverage. 6. Grief. We have added palliative care consult to help with resources for the recent loss of his family members. 7. The patient would like to be a DNR. 8. Peptic ulcer disease and deep venous thrombosis prevention started. 9. Case discussed with Dr. Barnes. 10. Hospital course dependent on clinical findings. Job ID: [id number]
[2020-04-22 23:21] LABS: Troponin I 0.321 ng/mL (< 0.028)
[2020-04-23 01:40] LABS: SARS-CoV-2 PCR by NAA Not Detected (NotDetected)
[2020-04-23 05:31] LABS: ALT (SGPT) 437 U/L (8-55); AST (SGOT) 367 U/L (5-34); Albumin 3.2 g/dL (3.4-4.8); Alkaline Phosphatase 98 U/L (40-110); Anion Gap 11 mmol/L (10-20); BUN (Urea Nitrogen) 25 mg/dL (8.4-25.7); Calc. Creatinine Clearance 96 mL/min (70-130); Calcium 8.6 mg/dL (7.8-10.44); Carbon Dioxide 26 mmol/L (23-31); Chloride 106 mmol/L (98-107); Glucose 115 mg/dL (83-110); Protein, Total 6.2 g/dL (5.8-8.1); Sodium 139 mmol/L (136-145)
[2020-04-23 06:04] LABS: #Basophils 0.1 thou/uL (0.0-0.2); #Eosinphils 0.1 thou/uL (0.0-0.7); #Monocytes 0.9 thou/uL (0.11-0.59); #Neutrophils 3.3 thou/uL (1.40-6.50); %Basophils 1.1 % (0.0-1.0); %Lymphocytes 32.2 % (21.0-51.0); %Monocytes 14.1 % (0.0-10.0); %Neutrophils 51.6 % (42.0-75.0); Hemoglobin 10.9 g/dL (14.0-18.0); Hypochromia SLIGHT = 6-15 cells (100X) (0-5/hpf); MDiff Complete? YES; Mean Corpuscular HGB CONC 28.3 g/dL (32.0-36.0); Mean Corpuscular Volume 77.6 fL (78.0-98.0); Mean Platelet Volume 11.2 fL (7.4-10.4); Platelet Count 112 thou/uL (130-400); Platelet Morphology Comment Appears Decreased; RBC Distribution Width 18.2 % (11.5-14.5); Red Blood Cell (RBC) Count 4.94 mill/uL (4.70-6.10); White Blood Cell (WBC) Count 6.3 thou/uL (4.8-10.8)
[2020-04-23] MEDS ORDERED: Furosemide 20 MG TAB PO SCH (09:00)
[2020-04-23] MEDS ORDERED: FLU VACC QS2020-21(65YR UP)/PF 240 MCG/0.7 ML SYRINGE IM ONE (09:00)
[2020-04-23] MEDS ORDERED: Furosemide 40 MG/4 ML VIAL SLOW IVP SCH ×2 (09:00→15:00)
[2020-04-23] MEDS: Aspirin Chewable 81 MG TAB PO SCH (09:24)
[2020-04-23] MEDS: Gabapentin 300 MG CAP PO SCH ×2 (09:25→13:26)
[2020-04-23] MEDS: Pramipexole Di-HCl 0.25 MG TAB PO SCH ×2 (09:26→21:09)
[2020-04-23] MEDS: Carvedilol 3.125 MG TAB PO SCH ×2 (09:26→19:27)
[2020-04-23] MEDS: Finasteride 5 MG TAB PO SCH (09:26)
[2020-04-23] MEDS: Clopidogrel Bisulfate 75 MG TAB PO SCH (09:26)
[2020-04-23] MEDS: Enoxaparin Sodium 100 MG/ML SYRINGE SC SCH ×2 (09:26→21:09)
[2020-04-23] MEDS: Famotidine 20 MG TAB PO SCH ×2 (09:26→21:09)
[2020-04-23 10:37] LABS: HBCM Index 0.09 S/CO (0-0.79); HBSAg Index 0.21 S/CO (0-0.99); Hep B Surf Ag Non-Reactive S/CO (NonReactive); Hep C IgG Ab Non-Reactive (NonReactive); Hep C Index 0.17 S/CO (0-0.79); Hepatitis B Core IgM Abs Non-Reactive (NonReactive)
--- NOTE | 2020-04-23 10:53 | PDOC.HOSPP ---
- Subjective Encounter Date: 04/23/20 Encounter Time: 10:52 Subjective: was seen today in follow-up of CHF exacerbation. He says he feels much better. The symptoms he experienced on admission have completely resolved. He says he is breathing better. He also says he is eating better as well. - Objective Vital Signs & Weight: Vital Signs (12 hours) Temp Pulse Resp BP BP Pulse Ox 04/23/20 09:22 98.0 F 93 20 132/76 95 04/23/20 03:47 97.8 F 94 18 113/52 L 94 L 04/23/20 00:00 96 Weight Weight 218 lb I&O: 04/22/20 04/23/20 04/24/20 06:59 06:59 06:59 Intake Total 360 Balance 360 Result Diagrams: 04/23/20 04:53 04/23/20 04:53 Additional Labs: Accuchecks 04/22/20 21:38 POC Glucose 101 H Hospitalist ROS - Medication Medications: Active Medications Generic Name Dose Route Start Last Admin Trade Name Freq PRN Reason Stop Dose Admin Aspirin 81 mg 04/23/20 09:00 04/23/20 09:24 Aspirin Chewable 81 Mg Tab PO 81 mg DAILY ABBI Administration Carvedilol 3.125 mg 04/23/20 08:00 04/23/20 09:26 Carvedilol 3.125 Mg Tab PO 3.125 mg BID-WM BABI Administration Clopidogrel Bisulfate 75 mg 04/23/20 09:00 04/23/20 09:26 Clopidogrel Bisulfate 75 Mg Tab PO 75 mg DAILY ABBI Administration Enoxaparin Sodium 100 mg 04/23/20 09:00 04/23/20 09:26 Enoxaparin Sodium 100 Mg/Ml Syringe SC 100 mg 0900,2100 ABBI Administration Famotidine 20 mg 04/22/20 21:00 04/23/20 09:26 Famotidine 20 Mg Tab PO 20 mg BID ABBI Administration Finasteride 5 mg 04/23/20 09:00 04/23/20 09:26 Finasteride 5 Mg Tab PO 5 mg DAILY ABBI Administration Furosemide 40 mg 04/23/20 09:00 04/23/20 09:26 Furosemide 40 Mg/4 Ml Vial SLOW IVP 40 mg DAILY ABBI Administration Gabapentin 600 mg 04/23/20 09:00 04/23/20 09:25 Gabapentin 300 Mg Cap PO 600 mg 0900,1200 ABBI Administration Pramipexole Dihydrochloride 0.25 mg 04/23/20 09:00 04/23/20 09:26 Pramipexole Di-Hcl 0.25 Mg Tab PO 0.25 mg BID ABBI Administration Sacubitril/Valsartan 1 tab 04/23/20 09:00 04/23/20 09:26 Sacubitril 24mg/Valsartan 26mg Tab PO 1 tab BID ABBI Administration Hospitalist Exam Vitals: Vital Signs (12 hours) Temp Pulse Resp BP BP Pulse Ox 04/23/20 09:22 98.0 F 93 20 132/76 95 04/23/20 03:47 97.8 F 94 18 113/52 L 94 L 04/23/20 00:00 96 Weight Weight 218 lb Eye: PERRL, anicteric sclera Heart: RRR ([id number] murmur, with S3), murmur present, II/IV Respiratory: CTAB, no wheezes, no rales, no ronchi, normal chest expansion Gastrointestinal: soft (+ mildly distended, Liver is enlarged, and + flank dullness) Extremities: no cyanosis (pulses diminished), 1+ LE edema Hosp A/P (1) Acute on chronic systolic (congestive) heart failure Code(s): I50.23 - ACUTE ON CHRONIC SYSTOLIC (CONGESTIVE) HEART FAILURE Status: Acute (2) PVD (peripheral vascular disease) Code(s): I73.9 - PERIPHERAL VASCULAR DISEASE, UNSPECIFIED Status: Acute (3) Coronary artery disease Code(s): I25.10 - ATHSCL HEART DISEASE OF [place] CORONARY ARTERY W/O ANG PCTRS Status: Chronic Qualifiers: Coronary Disease-Associated Artery/Lesion type: bypass graft [place] vs. transplanted heart: [place] heart Associated angina: without angina Qualified Code(s): I25.810 - Atherosclerosis of coronary artery bypass graft(s) without angina pectoris (4) Hypertension Code(s): I10 - ESSENTIAL (PRIMARY) HYPERTENSION Status: Chronic Qualifiers: Hypertension type: essential hypertension Qualified Code(s): I10 - Essential (primary) hypertension - Plan * Acute on chronic combined systolic and diastolic heart failure- discussed with Lincoln Almonte- will continue to diurese * HTN- blood pressure is stable * CAD- patient has inoperable CAD according to Netting Inspector- will treat medically * Elevated Liver enzymes- this is likely due to passive congestion of the liver form CHF- however he says he has a history of Hepatitis C- will check aaaaaaan ultrasound of the liver
[2020-04-23 12:07] LABS: Hep A IgM S/CO 0.99 S/CO (0-0.79)
[2020-04-23 12:10] LABS: Hep A IgM AB Equivocal (NonReactive)
--- NOTE | 2020-04-23 12:17 | ULT ---
US Gallbladder RUQ: 04/23/2020 11:17 AM CLINICAL HISTORY: Right upper quadrant abdominal pain. STUDY: Limited right upper quadrant ultrasound of abdomen. COMPARISON: CT abdomen/pelvis 04/22/2020 FINDINGS: Liver: Size: Normal. Echogenicity: Normal. Contour: Smooth. Mass: None. There is a small amount of ascites in the right upper quadrant. Bile ducts: No intrahepatic or extrahepatic biliary dilatation. Common bile duct measures 5 mm. Gallbladder: Absent Pancreas: Head, body, and tail appear normal. Right kidney: No pelvicalyceal dilatation. Right kidney measuring 11.9 cm in length. There is a small right pleural effusion IMPRESSION: 1. No acute hepatic or biliary abnormality 2. Small ascites
--- NOTE | 2020-04-23 15:27 | CON ---
DATE OF CONSULTATION: 04/23/2020 REASON FOR CONSULTATION: Positive troponins and heart failure. PRIMARY PROGRAMS MANAGER: Arnol Andrade MD. HISTORY OF PRESENT ILLNESS: Mr. Diaz is a very pleasant 74-year-old white gentleman, who comes to the hospital for nausea, vomiting, diarrhea, and abdominal swelling. He was seen in the ER for this. His BNP was very high. So he was admitted for heart failure exacerbation. He has a history of ischemic cardiomyopathy with reduced EF at about 20% to 25%. On last evaluation of his coronaries, he had nonrevascularizable coronary artery disease. He came in. He denies any chest pain, tightness, pressure, only shortness of breath, which is actually better since he has received some Lasix and has diuresed some. He is depressed secondary to having lost his in October due to COVID and losing his son 2 weeks ago due to COVID as well. PAST MEDICAL HISTORY: 1. Coronary artery disease status post bypass. 2. History of ischemic cardiomyopathy with last EF at 20% to 25%. 3. Type 2 diabetes. 4. Hyperlipidemia. 5. Hypertension. 6. PVD. PAST SURGICAL HISTORY: 1. Coronary about bypass grafting x5 in 2001. Only 2/5 grafts are open. 2. Cholecystectomy. 3. Right salivary gland tumor removal. 4. Coronary stenting in 2013. 5. Aortobifemoral bypass. 6. TAVR in 2018 due to severe aortic stenosis. Carotid endarterectomy in 2007. FAMILY HISTORY: Father at 85 of heart disease, mother at 81 of Alzheimer dementia. SOCIAL HISTORY: Former smoker, quit in 2001. 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 ALLERGIES: NO KNOWN DRUG ALLERGIES. OUTPATIENT MEDICATIONS: Include 1. Entresto 24/26 p.o. b.i.d. 2. Crestor 10 mg p.o. q.p.m. 3. Pramipexole 0.25 mg b.i.d. 4. Glimepiride. 5. Gabapentin. 6. Furosemide 20 mg a day. 7. Finasteride 5 mg a day. 8. Jardiance 10 mg a day. 9. Diclofenac p.r.n. 10. Plavix 75 mg a day. 11. Coreg 3.125 b.i.d. 12. Aspirin 81 a day. REVIEW OF SYSTEMS: A 12-point review of systems was done and was found to be negative other than stated in the history of present illness. PHYSICAL EXAMINATION: VITAL SIGNS: Temperature 97.8, pulse 92, respiratory rate 16, saturating 93% on room air, blood pressure 118/60. GENERAL: Awake, alert, oriented x3. No distress. HEENT: Normocephalic, atraumatic. NECK: Supple. LUNGS: Have mild crackles at bases. CARDIOVASCULAR: S1 and S2. There is a grade 2/6 systolic murmur at the right upper sternal border. ABDOMEN: Soft. EXTREMITIES: 1+ edema. SKIN: Warm and dry. LABORATORY DATA: Laboratory work was reviewed. White count of 6, hemoglobin of 10.9, hematocrit of 38.3, platelet count of 112. Chemistries were reviewed. His troponin was 0.20, 0.31, 0.32 with normal CK-MB. COVID PCR serology was not detected. Most recent echocardiogram done earlier today showed EF of 15% to 20% with hypokinesis of the RV TAVR, is normal functioning. Mild to moderate TR and mild to moderate PI. Diastolic dysfunction is grade 3/3. ASSESSMENT: 1. Acute on chronic systolic heart failure. 2. Ischemic cardiomyopathy with EF at 15% to 20%. 3. Severe aortic stenosis, status post TAVR, normal functioning on echo today. 4. Non-ST elevation myocardial infarction. PLAN: 1. Agree with continued IV diuresis. Elevated liver function test is likely related to either a viral issue versus just a liver congestion from heart failure. 2. Agree with full anticoagulation for now as he does have severe coronary artery disease, however, more than likely this is demand ischemia from his current situation. He is having nausea and vomiting and diarrhea and his hepatitis A titers are equivocal, so this may be an acute hepatitis A, unclear at this time. Continue Lovenox full dose. 3. We will increase Lasix to 40 IV b.i.d. Thank you for letting us participate in the care of your patient. We will follow. Job ID: [id number]
[2020-04-23] MEDS: Gabapentin 400 MG CAP PO SCH (21:08)
[2020-04-23] MEDS: Rosuvastatin 10 MG TAB PO SCH (21:09)
[2020-04-24] MEDS: Furosemide 40 MG/4 ML VIAL SLOW IVP SCH ×2 (05:27→13:29)
[2020-04-24] MEDS: Pramipexole Di-HCl 0.25 MG TAB PO SCH ×2 (08:28→21:05)
[2020-04-24] MEDS: Enoxaparin Sodium 100 MG/ML SYRINGE SC SCH ×2 (08:28→21:01)
[2020-04-24] MEDS: Finasteride 5 MG TAB PO SCH (08:28)
[2020-04-24] MEDS: Gabapentin 300 MG CAP PO SCH ×2 (08:28→13:29)
[2020-04-24] MEDS: Clopidogrel Bisulfate 75 MG TAB PO SCH (08:28)
[2020-04-24] MEDS: Famotidine 20 MG TAB PO SCH ×2 (08:28→21:04)
[2020-04-24] MEDS: Aspirin Chewable 81 MG TAB PO SCH (08:29)
[2020-04-24] MEDS: Carvedilol 3.125 MG TAB PO SCH ×2 (08:29→17:16)
[2020-04-24 09:30] LABS: #Eosinphils 0.1 thou/uL (0.0-0.7); #Lymphocytes 1.4 thou/uL (1.20-3.40); #Monocytes 0.7 thou/uL (0.11-0.59); #Neutrophils 2.7 thou/uL (1.40-6.50); %Basophils 0.8 % (0.0-1.0); %Eosinophils 2.2 % (0.0-10.0); %Lymphocytes 27.9 % (21.0-51.0); %Monocytes 13.5 % (0.0-10.0); %Neutrophils 55.6 % (42.0-75.0); Hemoglobin 11.2 g/dL (14.0-18.0); Mean Corpuscular HGB CONC 29.1 g/dL (32.0-36.0); Mean Corpuscular Hemoglobin 22.5 pg (27.0-31.0); Mean Corpuscular Volume 77.2 fL (78.0-98.0); Mean Platelet Volume 11.5 fL (7.4-10.4); Platelet Count 111 thou/uL (130-400); RBC Distribution Width 18.4 % (11.5-14.5); Red Blood Cell (RBC) Count 4.98 mill/uL (4.70-6.10); White Blood Cell (WBC) Count 4.9 thou/uL (4.8-10.8)
[2020-04-24 09:31] LABS: ALT (SGPT) 437 U/L (8-55); AST (SGOT) 257 U/L (5-34); Albumin 3.2 g/dL (3.4-4.8); Alkaline Phosphatase 98 U/L (40-110); Anion Gap 11 mmol/L (10-20); BUN (Urea Nitrogen) 25 mg/dL (8.4-25.7); Bilirubin, Total 2.4 mg/dL (0.2-1.2); Calc. Creatinine Clearance 95 mL/min (70-130); Calcium 8.6 mg/dL (7.8-10.44); Carbon Dioxide 31 mmol/L (23-31); Chloride 100 mmol/L (98-107); Glucose 138 mg/dL (83-110); Potassium 3.6 mmol/L (3.5-5.1); Protein, Total 6.2 g/dL (5.8-8.1); Sodium 138 mmol/L (136-145)
[2020-04-24 10:12] LABS: Hypochromia MODERATE=16-30 cells (100X) (0-5/hpf); MDiff Complete? YES; Microcytosis SLIGHT = 6-15 cells (100X) (0-5/hpf); Platelet Morphology Comment Appears Decreased; Polychromasia MODERATE = 3-4 cells (100X) (0-2/hpf); Target Cells SLIGHT = 2-5 cells (100X) (0-1/hpf)
--- NOTE | 2020-04-24 12:21 | PDOC.CPN ---
- Subjective Date: 04/24/20 Time: 12:18 Interval history: He feels better today. No chest pain. SOB only with exertion now. - Review of Systems General: denies: fever/chills, weight/appetite/sleep changes, night sweats, fatigue Respiratory: reports: shortness of breath, exercise intolerance. denies: cough, congestion Cardiovascular: denies: chest pain, palpitation, edema, paroxysmal nocturnal dyspnea, orthopnea Gastrointestinal: denies: nausea, vomiting, diarrhea, constipation, abd pain, GI bleeding Musculoskeletal: denies: pain, tenderness, stiffness, swelling, arthritis/arthralgias Neurological: denies: numbness, syncope, seizure, weakness - Objective Allergies/Adverse Reactions: Allergies Allergy/AdvReac Type Severity Reaction Status Date / Time No Known Allergies Allergy Verified 04/22/20 21:06 Visit Medications: Current Medications Acetaminophen (Acetaminophen 325 Mg Tab) 650 mg PO Q4H PRN PRN Reason: Headache/Fever/Mild Pain (1-3) Aspirin (Aspirin Chewable 81 Mg Tab) 81 mg PO DAILY [facility] Last Admin: 04/24/20 08:29 Dose: 81 mg Documented by: Carvedilol (Carvedilol 3.125 Mg Tab) 3.125 mg PO BID-[facility] Last Admin: 04/24/20 08:29 Dose: 3.125 mg Documented by: Clopidogrel Bisulfate (Clopidogrel Bisulfate 75 Mg Tab) 75 mg PO DAILY [facility] Last Admin: 04/24/20 08:28 Dose: 75 mg Documented by: Dextrose/Water (Dextrose 50% Abboject 50 Ml Syringe) 25 gm SLOW IVP PRN PRN PRN Reason: Hypoglycemia Enoxaparin Sodium (Enoxaparin Sodium 100 Mg/Ml Syringe) 100 mg SC 0900,2100 [facility] Last Admin: 04/24/20 08:28 Dose: 100 mg Documented by: Famotidine (Famotidine 20 Mg Tab) 20 mg PO BID [facility] Last Admin: 04/24/20 08:28 Dose: 20 mg Documented by: Finasteride (Finasteride 5 Mg Tab) 5 mg PO DAILY [facility] Last Admin: 04/24/20 08:28 Dose: 5 mg Documented by: Furosemide (Furosemide 40 Mg/4 Ml Vial) 40 mg SLOW IVP 0600,1400 [facility] Last Admin: 04/24/20 05:27 Dose: 40 mg Documented by: Gabapentin (Gabapentin 300 Mg Cap) 600 mg PO 0900,1200 [facility] Last Admin: 04/24/20 08:28 Dose: 600 mg Documented by: Gabapentin (Gabapentin 400 Mg Cap) 1,200 mg PO HS [facility] Last Admin: 04/23/20 21:08 Dose: 1,200 mg Documented by: Glucagon (Glucagon 1 Mg/Ml Vial) 1 mg IM PRN PRN PRN Reason: Hypoglycemia Dextrose/Water (D5w) 1,000 mls @ 0 mls/hr IV .Q0M PRN PRN Reason: Hypoglycemia Insulin Human Lispro (Humalog 300 Units/3 Ml Vial) 0 units SC .MILD SLIDING SCALE PRN PRN Reason: Mild Correctional Scale Insulin Human Lispro (Humalog 300 Units/3 Ml Vial) 0 units SC .BEDTIME SLIDING SC PRN PRN Reason: Bedtime Correctional Scale Pramipexole Dihydrochloride (Pramipexole Di-Hcl 0.25 Mg Tab) 0.25 mg PO BID [facility] Last Admin: 04/24/20 08:28 Dose: 0.25 mg Documented by: Rosuvastatin Calcium (Rosuvastatin 10 Mg Tab) 10 mg PO QPM [facility] Last Admin: 04/23/20 21:09 Dose: 10 mg Documented by: Sacubitril/Valsartan (Sacubitril 24mg/Valsartan 26mg Tab) 1 tab PO BID [facility] Last Admin: 04/24/20 08:29 Dose: 1 tab Documented by: Senna/Docusate Sodium (Senokot S 8.6-50 Mg Tab) 2 tab PO BIDPRN PRN PRN Reason: Constipation Sodium Chloride (Flush - Normal Saline 10 Ml Syringe) 10 ml IVF PRN PRN PRN Reason: Saline Flush Vital Signs & Weight: Vital Signs Temp Pulse Resp BP Pulse Ox 04/24/20 11:43 98.5 F 91 18 124/82 93 L 04/24/20 07:10 98 F 86 16 119/72 93 L 04/24/20 04:00 97.6 F 82 18 121/58 L 95 Weight 231 lb 8 oz - Physical Exam General: alert & oriented x3 HEENT: mucus membranes moist Neck: supple neck Cardiac: regular rate and rhythm Lungs: normal breath sounds Neuro: grossly intact Abdomen: active bowel sounds Extremities: 1+ LE edema Skin: clear Musculoskeletal: no pain - Labs Result Diagrams: 04/24/20 08:54 04/24/20 08:54 Troponin/CKMB CK-MB (CK-2) 4.4 ng/mL (0-6.6) 04/22/20 16:33 Troponin I 0.321 ng/mL (< 0.028) H* 04/22/20 22:45 - Telemetry Sinus rhythms and dysrhythmias: sinus rhythm - Assessment/Plan Assessment/Plan: 1. Acute on chronic systolic heart failure 2. Ischemic CM Ef at 15-20% 3. Severe s/p TAVR in 2018 4. NSTEMI PLAN: - Medical management for NSTEMI - Still has ascitis, continue IV lasix for one more day and reassess tomorrow. - Continue full anticoagulation for medical treatment of NSTEMI for 48 hrs.
--- NOTE | 2020-04-24 17:39 | PDOC.HOSPP ---
- Subjective Encounter Date: 04/24/20 Encounter Time: 17:38 Subjective: Mr. Diaz was seen today in follow-up of CHF exacerbation. He does not have any complaints. He says he is going home tomorrow. - Objective Vital Signs & Weight: Vital Signs (12 hours) Temp Pulse Resp BP Pulse Ox 04/24/20 16:50 97.3 F L 83 16 121/72 94 L 04/24/20 11:43 98.5 F 91 18 124/82 93 L 04/24/20 07:10 98 F 86 16 119/72 93 L Weight Weight 231 lb 8 oz I&O: 04/23/20 04/24/20 04/25/20 06:59 06:59 06:59 Intake Total 360 1154 Output Total 550 Balance 360 604 Result Diagrams: 04/24/20 08:54 04/24/20 08:54 Additional Labs: Accuchecks 04/24/20 04/24/20 04/24/20 16:48 11:00 06:10 POC Glucose 117 H 198 H 107 H 04/23/20 20:54 POC Glucose 129 H Hospitalist ROS - Medication Medications: Active Medications Generic Name Dose Route Start Last Admin Trade Name Freq PRN Reason Stop Dose Admin Aspirin 81 mg 04/23/20 09:00 04/24/20 08:29 Aspirin Chewable 81 Mg Tab PO 81 mg DAILY ABBI Administration Carvedilol 3.125 mg 04/23/20 08:00 04/24/20 17:16 Carvedilol 3.125 Mg Tab PO 3.125 mg BID- ABBI Administration Clopidogrel Bisulfate 75 mg 04/23/20 09:00 04/24/20 08:28 Clopidogrel Bisulfate 75 Mg Tab PO 75 mg DAILY ABBI Administration Enoxaparin Sodium 100 mg 04/23/20 09:00 04/24/20 08:28 Enoxaparin Sodium 100 Mg/Ml Syringe SC 100 mg 0900,2100 ABBI Administration Famotidine 20 mg 04/22/20 21:00 04/24/20 08:28 Famotidine 20 Mg Tab PO 20 mg BID ABBI Administration Finasteride 5 mg 04/23/20 09:00 04/24/20 08:28 Finasteride 5 Mg Tab PO 5 mg DAILY ABBI Administration Furosemide 40 mg 04/24/20 06:00 04/24/20 13:29 Furosemide 40 Mg/4 Ml Vial SLOW IVP 40 mg 0600,1400 ABBI Administration Gabapentin 600 mg 04/23/20 09:00 04/24/20 13:29 Gabapentin 300 Mg Cap PO 600 mg 0900,1200 ABBI Administration Gabapentin 1,200 mg 04/23/20 21:00 04/23/20 21:08 Gabapentin 400 Mg Cap PO 1,200 mg HS ABBI Administration Pramipexole Dihydrochloride 0.25 mg 04/23/20 09:00 04/24/20 08:28 Pramipexole Di-Hcl 0.25 Mg Tab PO 0.25 mg BID ABBI Administration Rosuvastatin Calcium 10 mg 04/23/20 21:00 04/23/20 21:09 Rosuvastatin 10 Mg Tab PO 10 mg QPM ABBI Administration Sacubitril/Valsartan 1 tab 04/23/20 09:00 04/24/20 08:29 Sacubitril 24mg/Valsartan 26mg Tab PO 1 tab BID ABBI Administration Hospitalist Exam Vitals: Vital Signs (12 hours) Temp Pulse Resp BP Pulse Ox 04/24/20 16:50 97.3 F L 83 16 121/72 94 L 04/24/20 11:43 98.5 F 91 18 124/82 93 L 04/24/20 07:10 98 F 86 16 119/72 93 L Weight Weight 231 lb 8 oz Eye: PERRL, anicteric sclera Heart: RRR, no murmur, no gallops, no rubs, normal peripheral pulses Respiratory: CTAB, no wheezes, no rales, no ronchi, normal chest expansion Gastrointestinal: soft, non-tender, non-distended, normal bowel sounds, no palpable masses, no hepatomegaly Extremities: no cyanosis, no edema Hosp A/P (1) Acute on chronic systolic (congestive) heart failure Code(s): I50.23 - ACUTE ON CHRONIC SYSTOLIC (CONGESTIVE) HEART FAILURE Status: Acute (2) PVD (peripheral vascular disease) Code(s): I73.9 - PERIPHERAL VASCULAR DISEASE, UNSPECIFIED Status: Acute (3) Coronary artery disease Code(s): I25.10 - ATHSCL HEART DISEASE OF [place] CORONARY ARTERY W/O ANG PCTRS Status: Chronic Qualifiers: Coronary Disease-Associated Artery/Lesion type: bypass graft [place] vs. transplanted heart: [place] heart Associated angina: without angina Qualified Code(s): I25.810 - Atherosclerosis of coronary artery bypass graft(s) without angina pectoris (4) Hypertension Code(s): I10 - ESSENTIAL (PRIMARY) HYPERTENSION Status: Chronic Qualifiers: Hypertension type: essential hypertension Qualified Code(s): I10 - Essential (primary) hypertension - Plan * Acute on chronic combined systolic and diastolic heart failure- discussed with Lincoln Almonte- will continue to diurese * HTN- blood pressure is stable * CAD- patient has inoperable CAD according to [employer]- will treat medically * Elevated Liver enzymes- this is likely due to passive congestion of the liver form CHF as well as Hepatitis A infection * Hopefully home tomorrow
[2020-04-24] MEDS: Gabapentin 400 MG CAP PO SCH (21:01)
[2020-04-24] MEDS: Rosuvastatin 10 MG TAB PO SCH (21:05)
[2020-04-25] MEDS: Furosemide 40 MG/4 ML VIAL SLOW IVP SCH ×2 (07:29→14:57)
[2020-04-25] MEDS: Famotidine 20 MG TAB PO SCH (10:18)
[2020-04-25] MEDS: Aspirin Chewable 81 MG TAB PO SCH (10:19)
[2020-04-25] MEDS: Gabapentin 300 MG CAP PO SCH ×2 (10:19→12:28)
[2020-04-25] MEDS: Pramipexole Di-HCl 0.25 MG TAB PO SCH (10:20)
[2020-04-25] MEDS: Carvedilol 3.125 MG TAB PO SCH (10:20)
[2020-04-25] MEDS: Finasteride 5 MG TAB PO SCH (10:20)
[2020-04-25] MEDS: Clopidogrel Bisulfate 75 MG TAB PO SCH (10:20)
[2020-04-25] MEDS: Enoxaparin Sodium 100 MG/ML SYRINGE SC SCH (10:21)
[2020-04-25 14:40] VITALS: BP 116/69; TEMP 97.5
--- NOTE | 2020-04-25 16:03 | PDOC.CPN ---
- Subjective Date: 04/25/20 Time: 16:02 Interval history: He is doing much better. breathing is better than it has been in along time. - Review of Systems General: denies: fever/chills, weight/appetite/sleep changes, night sweats, fatigue Respiratory: denies: cough, congestion, shortness of breath, exercise intolerance Cardiovascular: denies: chest pain, palpitation, edema, paroxysmal nocturnal dyspnea, orthopnea Gastrointestinal: denies: nausea, vomiting, diarrhea, constipation, abd pain, GI bleeding Musculoskeletal: denies: pain, tenderness, stiffness, swelling, arthritis/arthralgias Neurological: denies: numbness, syncope, seizure, weakness - Objective Allergies/Adverse Reactions: Allergies Allergy/AdvReac Type Severity Reaction Status Date / Time No Known Allergies Allergy Verified 04/22/20 21:06 Visit Medications: Current Medications Acetaminophen (Acetaminophen 325 Mg Tab) 650 mg PO Q4H PRN PRN Reason: Headache/Fever/Mild Pain (1-3) Aspirin (Aspirin Chewable 81 Mg Tab) 81 mg PO DAILY [facility] Last Admin: 04/25/20 10:19 Dose: 81 mg Documented by: Carvedilol (Carvedilol 3.125 Mg Tab) 3.125 mg PO BID-WM [facility] Last Admin: 04/25/20 10:20 Dose: 3.125 mg Documented by: Clopidogrel Bisulfate (Clopidogrel Bisulfate 75 Mg Tab) 75 mg PO DAILY [facility] Last Admin: 04/25/20 10:20 Dose: 75 mg Documented by: Dextrose/Water (Dextrose 50% Abboject 50 Ml Syringe) 25 gm SLOW IVP PRN PRN PRN Reason: Hypoglycemia Enoxaparin Sodium (Enoxaparin Sodium 100 Mg/Ml Syringe) 100 mg SC 0900,2100 [facility] Last Admin: 04/25/20 10:21 Dose: 100 mg Documented by: Famotidine (Famotidine 20 Mg Tab) 20 mg PO BID [facility] Last Admin: 04/25/20 10:18 Dose: 20 mg Documented by: Finasteride (Finasteride 5 Mg Tab) 5 mg PO DAILY [facility] Last Admin: 04/25/20 10:20 Dose: 5 mg Documented by: Furosemide (Furosemide 40 Mg/4 Ml Vial) 40 mg SLOW IVP 0600,1400 [facility] Last Admin: 04/25/20 14:57 Dose: Not Given Documented by: Gabapentin (Gabapentin 300 Mg Cap) 600 mg PO 0900,1200 [facility] Last Admin: 04/25/20 12:28 Dose: 600 mg Documented by: Gabapentin (Gabapentin 400 Mg Cap) 1,200 mg PO HS [facility] Last Admin: 04/24/20 21:01 Dose: 1,200 mg Documented by: Glucagon (Glucagon 1 Mg/Ml Vial) 1 mg IM PRN PRN PRN Reason: Hypoglycemia Dextrose/Water (D5w) 1,000 mls @ 0 mls/hr IV .Q0M PRN PRN Reason: Hypoglycemia Insulin Human Lispro (Humalog 300 Units/3 Ml Vial) 0 units SC .MILD SLIDING SCALE PRN PRN Reason: Mild Correctional Scale Insulin Human Lispro (Humalog 300 Units/3 Ml Vial) 0 units SC .BEDTIME SLIDING SC PRN PRN Reason: Bedtime Correctional Scale Pramipexole Dihydrochloride (Pramipexole Di-Hcl 0.25 Mg Tab) 0.25 mg PO BID [facility] Last Admin: 04/25/20 10:20 Dose: 0.25 mg Documented by: Rosuvastatin Calcium (Rosuvastatin 10 Mg Tab) 10 mg PO QPM [facility] Last Admin: 04/24/20 21:05 Dose: 10 mg Documented by: Sacubitril/Valsartan (Sacubitril 24mg/Valsartan 26mg Tab) 1 tab PO BID [facility] Last Admin: 04/25/20 10:19 Dose: 1 tab Documented by: Senna/Docusate Sodium (Senokot S 8.6-50 Mg Tab) 2 tab PO BIDPRN PRN PRN Reason: Constipation Sodium Chloride (Flush - Normal Saline 10 Ml Syringe) 10 ml IVF PRN PRN PRN Reason: Saline Flush Vital Signs & Weight: Vital Signs Temp Pulse Resp BP BP Pulse Ox 04/25/20 12:30 97.5 F L 81 16 116/69 96 04/25/20 07:10 97.4 F L 81 16 121/58 L 93 L Weight 230 lb - Physical Exam General: alert & oriented x3 HEENT: mucus membranes moist Neck: supple neck Cardiac: regular rate and rhythm Lungs: normal breath sounds Neuro: grossly intact Abdomen: active bowel sounds Extremities: 1+ LE edema Skin: clear Musculoskeletal: no pain - Labs Result Diagrams: 04/24/20 08:54 04/24/20 08:54 Troponin/CKMB CK-MB (CK-2) 4.4 ng/mL (0-6.6) 04/22/20 16:33 Troponin I 0.321 ng/mL (< 0.028) H* 04/22/20 22:45 - Telemetry Sinus rhythms and dysrhythmias: sinus rhythm - Assessment/Plan Assessment/Plan: 1. Acute on chronic systolic heart failure 2. Ischemic CM EF at 15-20% 3. Severe s/p TAVR in 2018 4. NSTEMI PLAN: - Medical management for NSTEMI - Doing a lot better. - He can be discharged on current meds. Likely exacerbation due to non compliance he states he is now thinking he had been using his Lasix as he has been preoccupied with arrangements.
--- NOTE | 2020-04-25 18:30 | PDOC.DS.DS ---
Provider Date of Admission: 04/23/20 13:47 Date of Discharge: 04/25/20 Admitting Provider: Sandy Barnes MD Consultations: Cardiology Primary Care Physician: Shira Mcconnell MD Course Hospital Course: Mr. Crump is a 74-year-old gentleman that has a history of chronic systolic heart failure as well as coronary artery disease. He presented to the emergency room complaining of nausea vomiting and diarrhea as well as increasing abdominal girth. He noticed some difficulty in breathing as well which she attributed to the increased size of his abdomen. He was evaluated in the emergency room and transferred to our hospital from [place]. There it was determined that he had an elevated BMP much higher than previous a CT scan of the abdomen showed a moderate amount of ascites as well as anasarca. Troponin was also slightly elevated. And then he was transferred to our facility for congestive heart failure exacerbation. A repeat echocardiogram was done during this admission and was determined that he had a much lower ejection fraction than prior his ejection fraction was estimated between 15 and 20%. He was evaluated by his lead level designer Dr. Caro. He was diuresed during his hospital stay and was asking to go home. He recently had 2 deaths in the family his as well as his son to KEV-19 and was not interested in staying in the hospital or any invasive procedures during this hospital stay. Once he was stabilized he was able to be discharged home and to have close outpatient follow-up. Pertinent Studies: Echocardiogram Resuscitation Status: 04/22/20 22:21 Resuscitation Status Routine Co-Sign Provider: Resuscitation Status: FULL: Full Resuscitation Discussed with: Patient Additional comments: He told hospitalist TOBACCO STEMMER he wanted to be a DNAR while in ED and has changed his mind and now is okay with CPR per nurse so will change it to full code. Palliative care consult pending to assist with goals of care and grief. Lab Results: 04/24/20 08:54 04/24/20 08:54 Abnormal Lab Results - Last 48 hrs 04/24/20 08:54: Total Bilirubin 2.4 H, AST 257 H, ALT 437 H, Albumin 3.2 L, Albumin/Globulin Ratio 1.1 L 04/24/20 08:54: Hgb 11.2 L, Hct 38.4 L, MCV 77.2 L, MCH 22.5 L, MCHC 29.1 L, RDW 18.4 H, Plt Count 111 L, MPV 11.5 H, Monocytes % 13.5 H, Monocytes # 0.7 H, Hypochromia MODERATE=16-30 cells H, Plt Morphology Comment Appears Decreased L, Polychromasia MODERATE = 3-4 cells H Vitals: Vital Signs (12 hours) Temp Pulse Resp BP BP Pulse Ox 04/25/20 12:30 97.5 F L 81 16 116/69 96 04/25/20 07:10 97.4 F L 81 16 121/58 L 93 L Weight Weight 230 lb Physical Exam: The patient was seen and examined on the day of discharge. Problem (1) Acute on chronic systolic (congestive) heart failure Code(s): I50.23 - ACUTE ON CHRONIC SYSTOLIC (CONGESTIVE) HEART FAILURE Status: Acute (2) PVD (peripheral vascular disease) Code(s): I73.9 - PERIPHERAL VASCULAR DISEASE, UNSPECIFIED Status: Acute (3) Coronary artery disease Code(s): I25.10 - ATHSCL HEART DISEASE OF [place] CORONARY ARTERY W/O ANG PCTRS Status: Chronic Qualifiers: Coronary Disease-Associated Artery/Lesion type: bypass graft [place] vs. transplanted heart: [place] heart Associated angina: without angina Qualified Code(s): I25.810 - Atherosclerosis of coronary artery bypass graft(s) without angina pectoris (4) Hypertension Code(s): I10 - ESSENTIAL (PRIMARY) HYPERTENSION Status: Chronic Qualifiers: Hypertension type: essential hypertension Qualified Code(s): I10 - Essential (primary) hypertension Plan Home Medications: Medication Instructions Recorded Confirmed Type Gabapentin 600 mg PO ASDIR 10/31/16 04/22/20 History Pramipexole Di-HCl [Pramipexole 0.25 mg PO BID 10/31/16 04/22/20 History Dihydrochloride] Rosuvastatin Calcium 10 mg PO QPM 10/31/16 04/22/20 History Clopidogrel Bisulfate [Plavix] 75 mg PO DAILY 11/03/16 04/22/20 History Gabapentin 1,200 mg PO HS 03/25/17 04/22/20 History Finasteride 5 mg PO DAILY 10/15/19 04/22/20 History Sacubitril/Valsartan [Entresto 24 1 tab PO BID 10/15/19 04/22/20 History mg-26 mg Tablet] Aspirin Chewable [Aspirin Chewable 81 mg PO DAILY 12/26/19 04/22/20 History Tablet] Carvedilol [Coreg] 3.125 mg PO BID 12/26/19 04/22/20 History Empagliflozin [Jardiance] 10 mg PO DAILY 12/26/19 04/22/20 History Diclofenac Sodium 75 mg PO BID 04/22/20 04/22/20 History Furosemide 20 mg PO DAILY 04/22/20 04/22/20 History Glimepiride [Amaryl] 4 mg PO QAM-WM 04/22/20 04/22/20 History Allergies: No Known Allergies Allergy (Verified 04/22/20 21:06) Activity:: Activity as Tolerated Nourishment:: Heart Healthy Diet Referrals: Jonas Almonte MD [Active] - 2-3 Weeks (Please call to schedule a follow up appontment.) Shira Mcconnell MD [Primary Care Provider] - 04/30/20 11:10 am () Disposition: HOME Quality CORE MEASURES:: N/A
== END 2020-04-25 16:53 | disposition home or self-care (01) | DRG 280 ==
LOC: ERS 15:16 → 2NO 18:17 → OBSVTOIN 04-23 13:47
PROVIDERS: ADMIT Internal Medicine; ATTEND Internal Medicine
DX: I21.4 Non-ST elevation (NSTEMI) myocardial infarction (principal); I50.43 Acute on chronic combined systolic (congestive) and diastolic (congestive) heart failure; R18.8 Other ascites; I25.810 Atherosclerosis of coronary artery bypass graft(s) without angina pectoris; B15.9 Hepatitis A without hepatic coma; I11.0 Hypertensive heart disease with heart failure; E78.5 Hyperlipidemia, unspecified; E78.00 Pure hypercholesterolemia, unspecified; Z90.49 Acquired absence of other specified parts of digestive tract; Z95.5 Presence of coronary angioplasty implant and graft; Z95.1 Presence of aortocoronary bypass graft; Z95.4 Presence of other heart-valve replacement; Z79.899 Other long term (current) drug therapy; Z79.811 Long term (current) use of aromatase inhibitors; Z79.82 Long term (current) use of aspirin; Z83.1 Family history of other infectious and parasitic diseases; Z79.01 Long term (current) use of anticoagulants; Z87.891 Personal history of nicotine dependence; E11.40 Type 2 diabetes mellitus with diabetic neuropathy, unspecified; E11.51 Type 2 diabetes mellitus with diabetic peripheral angiopathy without gangrene; R79.89 Other specified abnormal findings of blood chemistry; I25.5 Ischemic cardiomyopathy; I35.0 Nonrheumatic aortic (valve) stenosis; R19.7 Diarrhea, unspecified; Z20.822 Contact with and (suspected) exposure to COVID-19
CPT/HCPCS: 36415; 36416; 76705; 80053; 80074; 82553; 85025; 87635; 93005; 93306; 96372; 96374; 96376; G0378; J1650; J1940; U0003; U0005

== ENCOUNTER 2020-04-28 10:25 | Emergency (ER) | payer MEDICARE ==
[2020-04-28] MEDS ORDERED: Iopamidol-370 76% 500 ML 1 ML ONE (10:33)
--- NOTE | 2020-04-28 10:52 | RAD ---
Chest AP view INDICATION: Heart failure and edema with syncopal episode last evening COMPARISON: April 22, 2020 chest radiograph FINDINGS: Lungs: There is perihilar interstitial and airspace edema. Cardiac silhouette: There is moderate cardiomegaly Pulmonary vasculature: There is mild pulmonary vascular congestion. Pleural spaces: There are tiny bilateral pleural effusions, right greater than left. Upper abdomen: No abnormality seen. Osseous structures: No acute osseous abnormality. Additional findings: Post-CABG changes stable. IMPRESSION: Mild CHF.
[2020-04-28 11:14] LABS: Hemoglobin 10.5 g/dL (14.0-18.0); Mean Corpuscular Hemoglobin 22.9 pg (27.0-31.0); Mean Corpuscular Volume 76.4 fL (78.0-98.0); Red Blood Cell (RBC) Count 4.58 mill/uL (4.70-6.10)
[2020-04-28 11:29] LABS: #Lymphocytes 1.3 thou/uL (1.20-3.40); #Monocytes 0.6 thou/uL (0.11-0.59); #Neutrophils 3.7 thou/uL (1.40-6.50); %Basophils 0.4 % (0.0-1.0); %Eosinophils 0.5 % (0.0-10.0); %Lymphocytes 23.2 % (21.0-51.0); %Monocytes 10.6 % (0.0-10.0); %Neutrophils 65.3 % (42.0-75.0); Anisocytosis SLIGHT = 6-15 cells (100X) (0-5/hpf); Hypochromia SLIGHT = 6-15 cells (100X) (0-5/hpf); Large Platelets SLIGHT; MDiff Complete? YES; Mean Corpuscular HGB CONC 29.9 g/dL (32.0-36.0); Mean Platelet Volume 6.2 fL (7.4-10.4); Platelet Count 98 thou/uL (130-400); Platelet Morphology Comment Appears Decreased; Polychromasia SLIGHT = 2-3 cells (100X) (0-2/hpf); RBC Distribution Width 18.6 % (11.5-14.5); Small Platelets SLIGHT; Target Cells SLIGHT = 2-5 cells (100X) (0-1/hpf); Tear Drops SLIGHT = 2-5 cells (100X) (0-1/hpf); White Blood Cell (WBC) Count 5.6 thou/uL (4.8-10.8)
[2020-04-28 11:32] LABS: ALT (SGPT) 188 U/L (8-55); AST (SGOT) 50 U/L (5-34); Albumin 3.5 g/dL (3.4-4.8); Alkaline Phosphatase 84 U/L (40-110); Anion Gap 17 mmol/L (10-20); BUN (Urea Nitrogen) 26 mg/dL (8.4-25.7); Bilirubin, Total 2.5 mg/dL (0.2-1.2); Calc. Creatinine Clearance 0 mL/min (70-130); Calcium 8.7 mg/dL (7.8-10.44); Carbon Dioxide 25 mmol/L (23-31); Chloride 100 mmol/L (98-107); Glucose 100 mg/dL (83-110); Potassium 4.6 mmol/L (3.5-5.1); Protein, Total 6.5 g/dL (5.8-8.1); Sodium 137 mmol/L (136-145)
[2020-04-28 11:52] LABS: CKMB 2.8 ng/mL (0-6.6)
--- NOTE | 2020-04-28 12:14 | CT ---
CT PULMONARY ANGIOGRAM WITH IV CONTRAST AND 3D POSTPROCESSING: Date: 04/28/2020 HISTORY: Syncopal episode. Difficulty breathing. Patient was discharged from hospital on 04/25/2020 for hypert ension, heart failure, and edema. FINDINGS: There is good contrast opacification of the pulmonary arterial vasculature without filling defects to suggest pulmonary embolism. There are vascular calcifications with a 5.8 cm aneurysm of the ascendin g thoracic aorta. An aortic valvular stent is present. No pericardial effusions are identified. There are moderate sized bilateral pleural effusions, right side larger than the left. No pneumothoraces o r lobar consolidation seen. There are degenerative changes in the spine. Upper abdominal tomograms de monstrate a small amount of free fluid in the upper abdomen. IMPRESSION: 1. No CT evidence of pulmonary embolism. 2. Moderate size bilateral pleural effusions. 3. A 5.8 cm ascending thoracic aortic aneurysm. 4. Mild ascites. POS: [facility]
== END 2020-04-28 13:55 | disposition home or self-care (01) ==
LOC: ERS 10:25
DX: J20.9 Acute bronchitis, unspecified (principal); I11.0 Hypertensive heart disease with heart failure; I50.9 Heart failure, unspecified; R73.03 Prediabetes; E78.00 Pure hypercholesterolemia, unspecified; Z79.82 Long term (current) use of aspirin; Z79.899 Other long term (current) drug therapy
CPT/HCPCS: 71045; 71275; 80053; 82553; 83880; 84484; 85025; 93005; Q9967

== ENCOUNTER 2020-05-06 11:16 | Inpatient (IN) | payer MEDICARE ==
--- NOTE | 2020-05-06 12:12 | RAD ---
Exam: Chest one view HISTORY:Bilateral lower extremity swelling. CHF. Comparison: 04/28/2020 FINDINGS: Cardiac silhouette:Cardiomegaly. Stable sternotomy wires. Aorta: Atherosclerosis Pulmonary vessels: Normal Costophrenic angles: Clear LUNGS: No masses or consolidation. Chronic lung parenchymal changes. Pneumothorax: None Osseous abnormalities: None IMPRESSION: Cardiomegaly without evidence of congestive heart failure.
[2020-05-06 12:17] LABS: #Eosinphils 0.1 thou/uL (0.0-0.7); #Lymphocytes 1.7 thou/uL (1.20-3.40); #Monocytes 0.6 thou/uL (0.11-0.59); #Neutrophils 2.6 thou/uL (1.40-6.50); %Basophils 0.6 % (0.0-1.0); %Eosinophils 1.2 % (0.0-10.0); %Lymphocytes 34.1 % (21.0-51.0); %Monocytes 11.9 % (0.0-10.0); %Neutrophils 52.2 % (42.0-75.0); Mean Corpuscular Hemoglobin 22.1 pg (27.0-31.0); Mean Corpuscular Volume 76.4 fL (78.0-98.0); Mean Platelet Volume 10.9 fL (7.4-10.4); Platelet Count 136 thou/uL (130-400); RBC Distribution Width 18.5 % (11.5-14.5); Red Blood Cell (RBC) Count 4.54 mill/uL (4.70-6.10)
[2020-05-06] MEDS ORDERED: Aspirin Chewable 81 MG TAB ONE (12:17)
[2020-05-06] MEDS ORDERED: Furosemide 40 MG/4 ML VIAL ONE (12:17)
[2020-05-06 12:35] LABS: ALT (SGPT) 44 U/L (8-55); AST (SGOT) 22 U/L (5-34); Albumin 3.3 g/dL (3.4-4.8); Alkaline Phosphatase 75 U/L (40-110); Anion Gap 13 mmol/L (10-20); BUN (Urea Nitrogen) 25 mg/dL (8.4-25.7); Bilirubin, Total 2.4 mg/dL (0.2-1.2); CK (CPK) 70 U/L (30-200); Calc. Creatinine Clearance 0 mL/min (70-130); Calcium 8.6 mg/dL (7.8-10.44); Carbon Dioxide 28 mmol/L (23-31); Chloride 105 mmol/L (98-107); Glucose 96 mg/dL (83-110); Potassium 4.6 mmol/L (3.5-5.1); Protein, Total 6.3 g/dL (5.8-8.1); Sodium 141 mmol/L (136-145)
[2020-05-06 13:12] LABS: Bacteria/HPF None Seen HPF (None Seen); Bilirubin Negative (Negative); Blood, Urine Negative (Negative); Clarity Clear (Clear); Glucose, Urine (Dipstick) Greater than 1000 mg/dL (Negative); Ketone, Urine Negative (Negative); Leukocyte 250 Leu/uL (Negative); Nitrite Negative (Negative); Protein, Urine (Dipstick) Negative (Neg-Trace); RBC/HPF 0-3 HPF (0-3); Specific Gravity, Urine 1.023 (1.002-1.036); Squamous Epithelial 0-3 HPF (0-3)
[2020-05-06] MEDS ORDERED: Senokot S 8.6-50 MG TAB PO PRN (14:27)
[2020-05-06] MEDS ORDERED: Acetaminophen 325 MG TAB PO PRN (14:27)
[2020-05-06] MEDS ORDERED: Dextrose 50% Abboject 50 ML SYRINGE SLOW IVP PRN (15:35)
[2020-05-06] MEDS ORDERED: HumaLOG 300 UNITS/3 ML VIAL SC PRN ×2 (15:35)
[2020-05-06] MEDS ORDERED: Dextrose 5% in Water 1,000 ML IV PRN (15:35)
[2020-05-06 16:11] LABS: Troponin I 0.027 ng/mL (< 0.028)
--- NOTE | 2020-05-06 16:34 | HP ---
PRIMARY CARE PHYSICIAN: Dr. Wyatt. BILINGUAL EXECUTIVE ASSISTANT: Jonas Almonte MD. CHIEF COMPLAINT: Edema. HISTORY OF PRESENT ILLNESS: Mr. Diaz is a 74-year-old man, who reported to the emergency room today for worsening lower extremity swelling that extends all the way up to his scrotum. He states that this has progressively gotten worse over the last three days. He reports that he is more short of breath when he exerts himself such as climbing on a tractor and when he lies flat. He denied any chest pain, abdominal pain, nausea, vomiting, diarrhea. He was admitted by this UNDERGROUND UTILITY LOCATOR two weeks ago for nausea, vomiting, feeling bloated in his abdomen and elevated troponin. We repeated the echocardiogram on this last visit on 04/23/2020, which showed an ejection fraction of 15% to 20% with global hypokinesis, increased RVSP, C/W moderate pulmonary hypertension, left ventricular size moderately increased, restrictive filling pattern, severe diastolic dysfunction. He does have a TAVR from 2018, which was functioning normally. He was discharged several days later after Dr. Almonte saw him while he was in the hospital and thought that the CHF exacerbation on that visit was due to primarily preoccupation with recent arrangements and he had forgotten to take his Lasix. The patient on this visit reports that he has been taking his Lasix, but does not believe it is really working and is very frustrated that he has had multiple visits in the last several weeks for this edema. Lab values in the emergency room show white blood cell count of 5, hemoglobin 10, hematocrit 34.7, and platelet count is 136. Chemistry panel largely unremarkable. He had a slightly elevated troponin, but this was significantly better than when he was on his last admission. BNP was 3814, which is slightly higher than it was on the last two admissions. Urine with a glucose, urobilirubin, leukocyte esterase, white blood cell count, but no bacteria seen. This was sent off for culture. He was given 40 of Lasix in the emergency room. He is able to pee some of that and does feel better. He is going to be admitted to telemetry for further management. REVIEW OF SYSTEMS: Does report dyspnea on exertion. Reports orthopnea. Denies any chest pain, nausea, vomiting, diarrhea. All systems are reviewed and are negative unless mentioned above or in HPI. It does report musculoskeletal edema that has been worsening over the last three days and he also got some scrotal edema. ALLERGIES: NONE. HOME MEDICATIONS: Per last admission; 1. Amaryl 4 mg p.o. q.a.m. 2. Aspirin 81 mg p.o. daily. 3. Coreg 3.125 mg p.o. b.i.d. 4. Diclofenac 75 mg p.o. b.i.d. 5. Entresto , one tablet p.o. b.i.d. 6. Finasteride 5 mg p.o. daily. 7. Furosemide 20 mg p.o. daily. 8. Gabapentin he takes 600 mg in the morning and 1200 mg at night. 9. Jardiance 10 mg p.o. daily. 10. Plavix 75 mg p.o. daily. 11. Pramipexole 0.25 mg p.o. b.i.d. 12. Crestor 10 mg q.p.m. PAST MEDICAL HISTORY: Congestive heart failure, diabetes, high cholesterol, hypertension. SURGICAL HISTORY: Cardiac stent x2, coronary artery bypass x5 vessel. He has had a TAVR, cholecystectomy, left leg bypass. PSYCHIATRIC HISTORY: None. SOCIAL HISTORY: He drinks alcohol less than five drinks per day. Denies any drug use. No smoking history. FAMILY HISTORY: It is noted that he lost his son several weeks ago to [employer] and lost his last October to [employer]. EKG in the emergency room shows sinus rhythm with first-degree AV block, left axis deviation, beats per minute 85. He also had a chest x-ray which shows cardiomegaly without any evidence of congestive heart failure. PHYSICAL EXAMINATION: VITAL SIGNS: Blood pressure 121/69, pulse is 82, respiratory rate is 18, temperature is 98, PO2 sats are 94% on room air. CONSTITUTIONAL: The patient is awake and alert, oriented x3. He appears generally uncomfortable. HEENT: Mouth exam is normal. Mucous membranes are moist. NECK: Supple. Normal range of motion. Moderately increased JVD. RESPIRATORY: Scattered bibasilar rales, mid lung and he uses full sentences without any accessory muscle use. He is in no evidence of any respiratory distress. CARDIOVASCULAR: Regular rate and rhythm. No murmurs are noted. ABDOMEN: Soft and nontender. : +4 edema to the scrotum and foreskin. Mild erythema and edema to bilateral lower legs. No palpable warmth. EXTREMITIES: Pulses are present in all four extremities, +3 to bilateral lower leg edema. NEUROLOGIC: II through XII are grossly intact. SKIN: Warm, dry. Normal in color other than what is mentioned above due to the edema. PSYCHIATRIC: Has a normal affect. PLAN/ASSESSMENT: 1. Congestive heart failure exacerbation with anasarca. The patient received 40 mg of Lasix in the emergency room. We will continue this b.i.d. We will trend troponins. The first one was in the indeterminate range. He had an echocardiogram done two weeks ago. I do not see a reason to repeat it. 2. History of coronary artery disease. We will continue his home medications. 3. History of hypertension. We will continue his home medications once reconciled. 4. History of neuropathy. Continue his home medications once reconciled. 5. History of hyperlipidemia. We will restart his statin. 6. History of borderline diabetes Accu-Cheks a.c. and at bedtime with mild sliding scale for coverage. 7. Lovenox 40 mg daily for DVT prevention, Pepcid 20 mg p.o. b.i.d. for PED prevention. Case discussed with . 8. Hospital course dependent on clinical findings. Job ID: [id number]
[2020-05-06 16:48] VITALS: BMI 29.9
[2020-05-06] MEDS ORDERED: Famotidine 20 MG TAB PO SCH (21:00)
[2020-05-06] MEDS: Carvedilol 3.125 MG TAB PO SCH (21:19)
[2020-05-06] MEDS: Famotidine 20 MG TAB PO SCH (21:19)
[2020-05-06] MEDS: Rosuvastatin 10 MG TAB PO SCH (21:19)
[2020-05-06 22:41] LABS: SARS-CoV-2 PCR by NAA Not Detected (NotDetected)
[2020-05-07] MEDS ORDERED: Digoxin 0.25 MG TAB ONE (05:52)
[2020-05-07] MEDS ORDERED: Furosemide 40 MG TAB ONE (05:52)
[2020-05-07] MEDS ORDERED: Furosemide 40 MG/4 ML VIAL ONE (05:53)
[2020-05-07] MEDS ORDERED: Sacubitril 49 MG/Valsartan 51 MG TABLET ONE (08:56)
[2020-05-07] MEDS ORDERED: Glimepiride 4 MG TAB ONE (08:56)
[2020-05-07] MEDS ORDERED: Enoxaparin Sodium 40 MG/0.4 ML SYRINGE ONE (08:56)
[2020-05-07] MEDS ORDERED: Clopidogrel Bisulfate 75 MG TAB ONE (08:56)
[2020-05-07] MEDS ORDERED: FLU VACC QS2020-21(65YR UP)/PF 240 MCG/0.7 ML SYRINGE IM ONE (09:00)
[2020-05-07] MEDS ORDERED: Carvedilol 3.125 MG TAB ONE (09:58)
--- NOTE | 2020-05-07 13:41 | PDOC.HOSPP ---
- Subjective Encounter Date: 05/07/20 Subjective: Patient is alert and awake. Comfortable and pleased with dramatic improvement. He is on room air and in no acute distress. Reports significant improvement of scrotal edema. - Objective Vital Signs & Weight: Weight Weight 239 lb 8 oz I&O: 05/06/20 05/07/20 05/08/20 06:59 06:59 06:59 Intake Total 240 Output Total 300 Balance -60 Result Diagrams: 05/06/20 12:03 05/06/20 12:03 Additional Labs: Accuchecks 05/07/20 05/06/20 05/06/20 05:54 20:14 16:34 POC Glucose 94 242 H 152 H Hospitalist ROS - Medication Medications: Active Medications Generic Name Dose Route Start Last Admin Trade Name Freq PRN Reason Stop Dose Admin Carvedilol 3.125 mg 05/06/20 21:00 05/06/20 21:19 Carvedilol 3.125 Mg Tab PO 3.125 mg BID ABBI Administration Famotidine 20 mg 05/06/20 21:00 05/06/20 21:19 Famotidine 20 Mg Tab PO 20 mg BID ABBI Administration Rosuvastatin Calcium 10 mg 05/06/20 21:00 05/06/20 21:19 Rosuvastatin 10 Mg Tab PO 10 mg QPM ABBI Administration Sacubitril/Valsartan 1 tab 05/06/20 21:00 05/06/20 21:19 Sacubitril 24mg/Valsartan 26mg Tab PO 1 tab BID ABBI Administration Hospitalist Exam Vitals: Weight Weight 239 lb 8 oz General Appearance: NAD Eye: anicteric sclera ENT: normocephalic atraumatic Neck: supple Heart: RRR, murmur present Respiratory: CTAB, no wheezes, no rales, no ronchi Extremities: 1+ LE edema Extremities - other findings: Bilateral LE edema, R>L. Scrotal edema Musculoskeletal: normal tone, normal strength Psychiatric: normal affect, normal behavior Hosp A/P (1) Acute on chronic systolic (congestive) heart failure Code(s): I50.23 - ACUTE ON CHRONIC SYSTOLIC (CONGESTIVE) HEART FAILURE Status: Acute (2) Diabetes mellitus type 2 in nonobese Code(s): E11.9 - TYPE 2 DIABETES MELLITUS WITHOUT COMPLICATIONS Status: Acute (3) PVD (peripheral vascular disease) Code(s): I73.9 - PERIPHERAL VASCULAR DISEASE, UNSPECIFIED Status: Acute (4) Coronary artery disease Code(s): I25.10 - ATHSCL HEART DISEASE OF [place] CORONARY ARTERY W/O ANG PCTRS Status: Chronic Qualifiers: Coronary Disease-Associated Artery/Lesion type: bypass graft [place] vs. transplanted heart: [place] heart Associated angina: without angina Qualified Code(s): I25.810 - Atherosclerosis of coronary artery bypass graft(s) without angina pectoris (5) Dyslipidemia Code(s): E78.5 - HYPERLIPIDEMIA, UNSPECIFIED Status: Chronic (6) Hypertension Code(s): I10 - ESSENTIAL (PRIMARY) HYPERTENSION Status: Chronic Qualifiers: Hypertension type: essential hypertension Qualified Code(s): I10 - Essential (primary) hypertension - Plan Assessment Patient is a 74-year-old male with a known past medical history of aortic stenosis status post TAVR in 2018, advanced systolic CHF with EF of 15%. He presented to the hospital with progressively worsening extremity and scrotal edema. Symptoms have been complicated by functional decline as evidenced by dyspnea on minimal exertion. Is doing well on diuresis Acute on chronic systolic CHF Anasarca Type 2 diabetes mellitus Hypertension Hyperlipidemia Peripheral vascular disease Plan: Continue diuresis at current dose Continue Coreg and Entresto Monitor ins and out daily Trend BMP daily Fluid restriction with no more than 1.5 L/day Scrotal elevation Right lower extremity venous Doppler to rule out DVT Continue home dose of Plavix and rosuvastatin for peripheral vascular disease Continue insulin sliding scale. Follow-up hemoglobin A1c Lovenox and famotidine for DVT and GI prophylaxis, respectively
--- NOTE | 2020-05-07 17:06 | ULT ---
RIGHT LOWER EXTREMITY VENOUS DUPLEX STUDY: INDICATIONS: Right lower extremity pain and edema. TECHNIQUE: The deep veins of the right lower extremity are evaluated with ultrasound and Doppler using color Dop pler, spectral analysis and compression. FINDINGS: The deep veins of the right lower extremity exhibit normal blood flow and compression. No evidence of DVT identified. IMPRESSION: No evidence of right lower extremity deep venous thrombosis. POS: AGW
[2020-05-07] MEDS: Furosemide 40 MG/4 ML VIAL SLOW IVP SCH ×2 (17:28→18:22)
[2020-05-07] MEDS: Glimepiride 4 MG TAB PO SCH (17:30)
[2020-05-07] MEDS: Famotidine 20 MG TAB PO SCH ×2 (17:33→21:58)
[2020-05-07] MEDS: Carvedilol 3.125 MG TAB PO SCH ×2 (17:33→21:58)
[2020-05-07] MEDS: Clopidogrel Bisulfate 75 MG TAB PO SCH (17:33)
[2020-05-07] MEDS: Enoxaparin Sodium 40 MG/0.4 ML SYRINGE SC SCH (17:33)
[2020-05-07 18:08] LABS: Anion Gap 13 mmol/L (10-20); BUN (Urea Nitrogen) 24 mg/dL (8.4-25.7); Calc. Creatinine Clearance 127 mL/min (70-130); Calcium 8.5 mg/dL (7.8-10.44); Carbon Dioxide 27 mmol/L (23-31); Chloride 104 mmol/L (98-107); Glucose 78 mg/dL (83-110); Magnesium 1.9 mg/dL (1.6-2.6); Potassium 3.5 mmol/L (3.5-5.1); Sodium 140 mmol/L (136-145)
[2020-05-07 18:20] LABS: Hemoglobin A1c 6.3 % (4.0-6.0)
[2020-05-07 20:18] LABS: #Basophils 0.1 thou/uL (0.0-0.2); #Eosinphils 0.1 thou/uL (0.0-0.7); #Monocytes 0.7 thou/uL (0.11-0.59); #Neutrophils 2.7 thou/uL (1.40-6.50); %Basophils 0.9 % (0.0-1.0); %Eosinophils 1.6 % (0.0-10.0); %Lymphocytes 36.7 % (21.0-51.0); %Monocytes 11.8 % (0.0-10.0); %Neutrophils 48.9 % (42.0-75.0); Anisocytosis SLIGHT = 6-15 cells (100X) (0-5/hpf); Hemoglobin 9.5 g/dL (14.0-18.0); Hypochromia MODERATE=16-30 cells (100X) (0-5/hpf); MDiff Complete? YES; Mean Corpuscular HGB CONC 28.6 g/dL (32.0-36.0); Mean Corpuscular Hemoglobin 21.9 pg (27.0-31.0); Mean Corpuscular Volume 76.6 fL (78.0-98.0); Mean Platelet Volume 10.9 fL (7.4-10.4); Microcytosis SLIGHT = 6-15 cells (100X) (0-5/hpf); Ovalocytes SLIGHT = 2-5 cells (100X) (0-1/hpf); Platelet Count 132 thou/uL (130-400); Platelet Morphology Comment Appears Adequate; Polychromasia SLIGHT = 2-3 cells (100X) (0-2/hpf); RBC Distribution Width 18.8 % (11.5-14.5); Red Blood Cell (RBC) Count 4.34 mill/uL (4.70-6.10); Schistocytes SLIGHT = 2-5 cells (100X) (0-1/hpf); Target Cells MODERATE= 6-15 cells (100X) (0-1/hpf); Tear Drops SLIGHT = 2-5 cells (100X) (0-1/hpf); White Blood Cell (WBC) Count 5.5 thou/uL (4.8-10.8)
[2020-05-07] MEDS: Rosuvastatin 10 MG TAB PO SCH (21:58)
[2020-05-08] MEDS: Furosemide 40 MG/4 ML VIAL SLOW IVP SCH ×2 (06:30→15:00)
[2020-05-08] MEDS: Glimepiride 4 MG TAB PO SCH (09:30)
[2020-05-08] MEDS: Carvedilol 3.125 MG TAB PO SCH (09:30)
[2020-05-08] MEDS: Famotidine 20 MG TAB PO SCH (09:30)
[2020-05-08] MEDS: Clopidogrel Bisulfate 75 MG TAB PO SCH (09:30)
[2020-05-08] MEDS: Enoxaparin Sodium 40 MG/0.4 ML SYRINGE SC SCH (09:30)
--- NOTE | 2020-05-08 14:05 | PDOC.DS.DS ---
Provider Date of Admission: 05/06/20 14:31 Date of Discharge: 05/08/20 Admitting Provider: July Marsh MD Primary Care Physician: Shira Mcconnell MD Course Hospital Course: Patient is a 74-year-old male with a known past medical history of coronary artery disease status post CABG, aortic stenosis status post TAVR in 2018, and advanced systolic CHF with EF of 15% . He presented to the hospital with progressively worsening extremity and scrotal edema, which improved drastically with diuresis. Patient was never in respiratory failure nor did he require supplemental oxygen. He is near euvolemic status at this time and he can be discharged continue on his heart failure regimen. I will doubled his home regimen of furosemide, which will not be 40 mg oral daily. His hospital course has been unremarkable Lab Results: 05/07/20 03:55 05/07/20 03:55 Abnormal Lab Results - Last 48 hrs 05/06/20 18:49: Troponin I 0.030 H 05/07/20 03:55: RBC 4.34 L, Hgb 9.5 L, Hct 33.2 L, MCV 76.6 L, MCH 21.9 L, MCHC 28.6 L, RDW 18.8 H, MPV 10.9 H, Monocytes % 11.8 H, Monocytes # 0.7 H, Hypochromia MODERATE=16-30 cells H, Target Cells MODERATE= 6-15 cells H 05/07/20 17:48: B-Natriuretic Peptide 3226.6 H 05/07/20 17:48: Hemoglobin A1c 6.3 H 05/08/20 02:59: B-Natriuretic Peptide 3870.3 H Microbiology - Entire Visit 05/06/20 13:13 Venous blood - Left Arm Blood Culture - Preliminary NO GROWTH AT 48 HOURS 05/06/20 12:55 Urine voided Urine Culture - Final NO GROWTH AT 48 HOURS 05/06/20 12:53 Venous blood - Right Arm Blood Culture - Preliminary Gram Positive Rafael Vitals: Vital Signs (12 hours) Temp Pulse Resp BP Pulse Ox 05/08/20 08:00 97.9 F 89 18 115/58 L 94 L 05/08/20 03:43 98.0 F 88 18 107/61 95 Weight Weight 239 lb 11.2 oz Physical Exam: The patient was seen and examined on the day of discharge. General Appearance: NAD, awake alert Eye: anicteric sclera ENT: normocephalic atraumatic Respiratory: CTAB, no wheezes, no rales, no ronchi Cardiovascular: RRR, no murmur, no gallops, no rubs Gastrointestinal: soft, non-tender, non-distended Extremities - other findings: Minimal scrotal edema. Nearly resolved lower extremity edema Neurological: cranial nerve grossly intact PSYCH: normal affect, normal behavior Problem Assessment: Please refer to hospital course (1) Acute on chronic systolic (congestive) heart failure Code(s): I50.23 - ACUTE ON CHRONIC SYSTOLIC (CONGESTIVE) HEART FAILURE Status: Acute (2) Diabetes mellitus type 2 in nonobese Code(s): E11.9 - TYPE 2 DIABETES MELLITUS WITHOUT COMPLICATIONS Status: Acute (3) PVD (peripheral vascular disease) Code(s): I73.9 - PERIPHERAL VASCULAR DISEASE, UNSPECIFIED Status: Acute (4) Coronary artery disease Code(s): I25.10 - ATHSCL HEART DISEASE OF [place] CORONARY ARTERY W/O ANG PCTRS Status: Chronic Qualifiers: Coronary Disease-Associated Artery/Lesion type: bypass graft [place] vs. transplanted heart: [place] heart Associated angina: without angina Qualified Code(s): I25.810 - Atherosclerosis of coronary artery bypass graft(s) without angina pectoris (5) Dyslipidemia Code(s): E78.5 - HYPERLIPIDEMIA, UNSPECIFIED Status: Chronic (6) Hypertension Code(s): I10 - ESSENTIAL (PRIMARY) HYPERTENSION Status: Chronic Qualifiers: Hypertension type: essential hypertension Qualified Code(s): I10 - Essential (primary) hypertension Plan Home Medications: Medication Instructions Recorded Confirmed Type Gabapentin 600 mg PO ASDIR 10/31/16 05/06/20 History Pramipexole Di-HCl [Pramipexole 0.25 mg PO BID 10/31/16 05/06/20 History Dihydrochloride] Rosuvastatin Calcium 10 mg PO QPM 10/31/16 05/06/20 History Clopidogrel Bisulfate [Plavix] 75 mg PO DAILY 11/03/16 05/06/20 History Gabapentin 1,200 mg PO HS 03/25/17 05/06/20 History Finasteride 5 mg PO DAILY 10/15/19 05/06/20 History Sacubitril/Valsartan [Entresto 24 1 tab PO BID 10/15/19 05/06/20 History mg-26 mg Tablet] Aspirin Chewable [Aspirin Chewable 81 mg PO DAILY 12/26/19 05/06/20 History Tablet] Carvedilol [Coreg] 3.125 mg PO BID 12/26/19 05/06/20 History Empagliflozin [Jardiance] 10 mg PO DAILY 12/26/19 05/06/20 History Diclofenac Sodium 75 mg PO BID 04/22/20 05/06/20 History Glimepiride [Amaryl] 4 mg PO QAM-WM 04/22/20 05/06/20 History Furosemide 40 mg PO DAILY #0 05/08/20 05/06/20 Rx Allergies: No Known Allergies Allergy (Verified 05/06/20 16:59) Referrals: Shira Mcconnell MD [Primary Care Provider] - Disposition: HOME Quality CORE MEASURES:: N/A
[2020-05-08 16:37] VITALS: BP 116/64; TEMP 97.4
== END 2020-05-08 17:55 | disposition home or self-care (01) | DRG 293 ==
LOC: ERS 11:16 → 2NO 14:31
PROVIDERS: ADMIT Internal Medicine; ATTEND Internal Medicine
DX: I11.0 Hypertensive heart disease with heart failure (principal); I50.23 Acute on chronic systolic (congestive) heart failure; E11.51 Type 2 diabetes mellitus with diabetic peripheral angiopathy without gangrene; I25.10 Atherosclerotic heart disease of native coronary artery without angina pectoris; E78.5 Hyperlipidemia, unspecified; Z20.822 Contact with and (suspected) exposure to COVID-19; E78.00 Pure hypercholesterolemia, unspecified; E11.40 Type 2 diabetes mellitus with diabetic neuropathy, unspecified; Z95.5 Presence of coronary angioplasty implant and graft; Z95.1 Presence of aortocoronary bypass graft; Z90.49 Acquired absence of other specified parts of digestive tract; Z95.828 Presence of other vascular implants and grafts; Z79.899 Other long term (current) drug therapy; Z79.82 Long term (current) use of aspirin; Z79.02 Long term (current) use of antithrombotics/antiplatelets; Z79.84 Long term (current) use of oral hypoglycemic drugs; Z83.1 Family history of other infectious and parasitic diseases; Z95.2 Presence of prosthetic heart valve
CPT/HCPCS: 36415; 36416; 71045; 80048; 80053; 81003; 81015; 82550; 82553; 83036; 83605; 83735; 83880; 84484; 85025; 87040; 87086; 87635; 93005; 96374; J1650; J1940; U0003; U0005